=== PATIENT | female | born 1995 | race American Indian/Alaskan Native ===

== ENCOUNTER 2021-03-01 10:12 | Inpatient (IN) | payer OTHER ==
--- NOTE | 2021-03-01 11:25 | History and Physical Report ---
History of Present Illness Date of examination: 03/01/21 (Admit for BP monitoring and collection of 24hr urine) Chief complaint: elevated BP History of present illness: EDC Confirmation: 03/25/2021 Gestational Age: 36 4/7 weeks Past History : 1 Term Births: 0 Premature Births: 0 Living Children: 0 Para: 0 Mult. Births: 0 Prev : 0 Prev. attempt? 0 Aborta: 0 Elect. Ab: 0 Spont. 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 of genital herpes: no Partner hx. of genital herpes: no Rash, Viral, or Febrile illness since last LMP? no Varicella/Chicken Pox Status: Unknown TB Risk: no Genetic History Congenital Heart Defect: Mom: no Dad: no Gris Disease: Mom: no Dad: no Thalassemia Mom: no Dad: no Neural Tube Defect Mom: no Dad: no Down's Syndrome Mom: no Dad: no Vini-Sachs Mom: no Dad: no Sickle Cell Disease/Trait Mom: no Dad: no Hemophilia Mom: no Dad: no Muscular Dystrophy Mom: no Dad: no Cystic Fibrosis Mom: no Dad: no Ivis Chorea Mom: no Dad: no Mental Retardation Mom: no Dad: no Fragile X Mom: no Dad: no Other Genetic/Chromosomal Disorder Mom: no Dad: no Child w/other defect Mom: no Dad: no Enviromental Exposures Xray Exposure: no Medication, drug, or alcohol use since LMP: no Chemical/Other Exposure: no Exposure to Cat Liter: no Hx of Parvovirus (Fifth Disease): no Occupational Exposure to Children: none Active Medications (reviewed today): PNV () Current Allergies: No known allergies Past History - Obstetrical History Expected Date of Delivery: 03/25/21 Actual Gestation: 36 Week(s) 4 Day(s) : 1 Para: 0 Hx # Term Pregnancies: 0 Number of Pregnancies: 0 Spontaneous Abortions: 0 Induced : 0 Number of Living Children: 0 Medications and Allergies Allergies Allergy/AdvReac Type Severity Reaction Status Date / Time No Known Allergies Allergy Unverified 03/01/21 11:12 Review of Systems All systems: negative - Vital Signs Vital signs: Vital Signs Pulse Pulse Ox 92 H 97 03/01/21 10:57 03/01/21 10:57 Temp Pulse Resp BP Pulse Ox 86 147/94 97 03/01/21 11:22 03/01/21 11:21 03/01/21 11:22 - Physical Exam Breasts: Positive: deferred Cardiovascular: Regular rate, Normal S1, Normal S2 Lungs: Positive: Clear to auscultation Abdomen: Positive: normal appearance, soft, normal bowel sounds. Negative: distention, tenderness Genitourinary (Female): Positive: normal external genitalia Vulva: both: normal Vagina: Positive: normal moisture. Negative: discharge Cervix: Negative: lesion, discharge Uterus: Positive: normal size, normal contour Adnexa: both: normal Anus/Rectum: Positive: normal perianal skin, heme negative. Negative: rectal mass, hemorrhoids Extremities: Positive: normal Deep Tendon Reflex Grade: Normal +2 - Obstetrical FHR: category 1 Uterine Contraction Monitor Mode: External Cervical Dilatation: 1.5 (Dr Diaz in office) Cervical Effacement Percentage: 70 station: -2 Uterine Contraction Pattern: Irregular Uterine Tone Measurement Phase: Resting Uterine Contraction Intensity: Mild Results Result Diagrams: 03/01/21 11:33 03/01/21 11:33 All other labs normal. GBS negative HBsAg Screen Negative Negative *1 RPR Non Reactive Non Reactive *2 Rubella Antibodies, IgG 1.66 index Immune >0.99 *3 Non-immune <0.90 Equivocal 0.90 - 0.99 Immune >0.99 ABO Grouping B *4 Rh Factor Positive *5 Please note: Prior records for this patient's ABO / Rh type are not available for additional verification. Antibody Screen Negative Negative *6 WBC 6.5 x10E3/uL 3.4-10.8 *7 RBC 4.55 x10E6/uL 3.77-5.28 *8 Hemoglobin 12.3 g/dL 11.1-15.9 *9 Hematocrit 39.0 % 34.0-46.6 *10 MCV 86 fL 79-97 *11 MCH 27.0 pg 26.6-33.0 *12 MCHC 31.5 g/dL 31.5-35.7 *13 RDW 15.2 % 11.7-15.4 *14 Platelets 198 x10E3/uL 150-450 *15 Neutrophils 64 % Not Estab. *16 Lymphs 27 % Not Estab. *17 Monocytes 6 % Not Estab. *18 Eos 2 % Not Estab. *19 Basos 0 % Not Estab. *20 ! Immature Cells <No Reported Value> *21 Neutrophils (Absolute) 4.2 x10E3/uL 1.4-7.0 *22 Lymphs (Absolute) 1.8 x10E3/uL 0.7-3.1 *23 Monocytes(Absolute) 0.4 x10E3/uL 0.1-0.9 *24 Eos (Absolute) 0.1 x10E3/uL 0.0-0.4 *25 Baso (Absolute) 0.0 x10E3/uL 0.0-0.2 *26 ! Immature Granulocytes 1 % Not Estab. *27 ! Immature Grans (Abs) 0.0 x10E3/uL 0.0-0.1 *28 ! NRBC <No Reported Value> *29 Hematology Comments: <No Reported Value> *30 Tests: (2) HIV Ag/Ab with Reflex ([id number]) HIV Screen 4th Generation wRfx Non Reactive Non Reactive *31 Tests: (3) HCV Ab w/Rflx to Verification ([id number]) ! HCV Ab <0.1 s/co ratio 0.0-0.9 *32 Tests: (4) Comment: ([id number]) ! Comment: SPRCS *33 Non reactive HCV antibody screen is consistent with no HCV infection, unless recent infection is suspected or other evidence exists to indicate HCV infection. Tests: (5) Urine Culture, Routine ([id number]) Urine Culture, Routine Final report *34 Tests: (6) Result ([id number]) ! Result 1 No growth *35 Assessment and Plan 26yo @ 36w4d with probable GHTN. Will complete PreE evaluation and evaluation. Anticipate IOL @ 37w All orders in EMR. - Patient Problems (1) Gestational hypertension Onset Date: ~03/01/21 Current Visit: Yes Status: Acute Qualifiers: Trimester: third trimester Qualified Code(s): O13.3 - Gestational [-induced] hypertension without significant proteinuria, third trimester Plan to address problem: close monitoring of BP PreE w/u blood work and UA; admit to collect 24hr urine evaluation: BPP, EFW, AKIN. Dr Diaz's recommendation is to complete 24hr urine, plan for IOL @ 37w.
[2021-03-01 11:55] LABS: Hemoglobin 12.3 gm/dl (10.1-14.3); Mean Corpuscular HGB Conc 34 % (30-34); Mean Corpuscular Volume 89 fl (79-97); Platelet Count 133 K/mm3 (140-440); Red Blood Count 4.04 M/mm3 (3.65-5.03); Red Cell Distribution Width 13.3 % (13.2-15.2)
[2021-03-01] MEDS ORDERED: DOCUSATE SODIUM 100 MG CAP PO PRN (12:00)
[2021-03-01] MEDS ORDERED: SODIUM CHLORIDE NASAL SPRAY 44ML NS PRN (12:00)
[2021-03-01] MEDS ORDERED: ONDANSETRON 4 MG/2 ML INJ IV PRN (12:00)
[2021-03-01] MEDS ORDERED: diphenhydrAMINE 25 MG CAP PO PRN (12:00)
[2021-03-01] MEDS ORDERED: ACETAMINOPHEN 325 MG TAB PO PRN (12:00)
[2021-03-01 12:07] LABS: Alanine Aminotransferase 9 units/L (7-56); Uric Acid 4.2 mg/dL (3.5-7.6)
[2021-03-01 12:10] LABS: Bacteria,Urine 2+ /HPF (Negative); Bilirubin,Urine NEG (Negative); Blood,Urine SM (Negative); Color,Urine Yellow (Yellow); Mucus,Urine FEW /HPF; Protein,Urine <15 mg/dL mg/dL (Negative); Urobilinogen,Urine < 2.0 mg/dL (<2.0)
--- NOTE | 2021-03-01 12:30 | Ultrasound Report ---
LIMITED OBSTETRICAL ULTRASOUND WITH BIOPHYSICAL PROFILE HISTORY: Elevated blood pressure. FINDINGS: Biophysical profile is normal at 03/12. Limited obstetrical ultrasound was performed demonstrating a single viable intrauterine in the cephalic position with heart tones of 143 bpm. Amniotic fluid index is normal at 9.8 cm. Estimated age is 35 weeks 3 days by ultrasound. Estimated weight is 2608 g (5 lbs. 12 oz. ). Cephalic index is elevated at 91 (normal range 74-83). Femur length to biparietal diameter ratio is l ow at 69.1 (normal range is 72-88). IMPRESSION: 1. Normal biophysical profile at 03/12. 2. Single viable intrauterine dated 35 weeks 3 days. 3. Cephalic index is elevated. Femur length to biparietal diameter ratio is diminished. Signer Name: Miguel Gomez MD Signed: 03/01/2021 12:21 PM Workstation Name: [id number]
--- NOTE | 2021-03-01 18:09 | Event Note ---
Date: 03/01/21 Some blood pressures are in the sever range. Will start MgSo4 at this time as we are collecting the urine. Will also start labetalol 100mg first dose now for the elevated bps. I d/w plan of care and that even if the bps are normal but her blood pressures are in the severe ranges, this would mean IOL Pt expressed understanding and question were addressed and answered.
[2021-03-01] MEDS ORDERED: LACTATED RINGERS 1,000 ML ONE (18:25)
[2021-03-01] MEDS ORDERED: MAGNESIUM SULFATE 4 GM/100 ML BAG IV ONE (18:30)
[2021-03-01] MEDS ORDERED: LACTATED RINGERS 1,000 ML IV SCH (19:00)
[2021-03-01] MEDS ORDERED: hydrALAZINE 20 MG/1 ML INJ IV ONE (20:01)
--- NOTE | 2021-03-01 20:14 | Progress Note ---
Assessment and Plan A: 26 y.o. @ 36.4 wks, gHTN without proteinuria. Severe range blood pressures. Cervical exam 1.5/50/-3. P: Initiate IOL with Cervidil. Continue with magnesium infusion per protocol. Continue to monitor blood pressures and for s/sx of pre eclampsia. Subjective - Subjective Date of service: 03/01/21 (Severe range blood pressures) Principal diagnosis: IUP @ 36.4 wks Patient reports: movement normal, no new complaints, no loss of fluid, no vaginal bleeding, no contractions Objective - Vital Signs Vital Signs: Vital Signs - 12hr 03/01/21 03/01/21 03/01/21 10:57 10:58 11:02 Temperature Pulse Rate 92 H 87 86 Respiratory Rate Blood Pressure 156/89 Blood Pressure [Left] O2 Sat by Pulse 97 98 Oximetry O2 Sat by Pulse Oximetry [ Anterior Bilateral Throughout] 03/01/21 03/01/21 03/01/21 11:07 11:12 11:17 Temperature Pulse Rate 86 94 H 89 Respiratory Rate Blood Pressure 156/94 Blood Pressure [Left] O2 Sat by Pulse 99 97 96 Oximetry O2 Sat by Pulse Oximetry [ Anterior Bilateral Throughout] 03/01/21 03/01/21 03/01/21 11:21 11:22 11:27 Temperature Pulse Rate 90 86 90 Respiratory Rate Blood Pressure 147/94 Blood Pressure [Left] O2 Sat by Pulse 97 98 Oximetry O2 Sat by Pulse Oximetry [ Anterior Bilateral Throughout] 03/01/21 03/01/21 03/01/21 11:32 12:08 12:12 Temperature 98.5 F Pulse Rate 90 87 87 Respiratory 18 Rate Blood Pressure Blood Pressure 137/86 [Left] O2 Sat by Pulse 97 97 97 Oximetry O2 Sat by Pulse Oximetry [ Anterior Bilateral Throughout] 03/01/21 03/01/21 03/01/21 12:13 12:18 12:23 Temperature Pulse Rate 93 H 91 H 90 Respiratory Rate Blood Pressure 137/86 Blood Pressure [Left] O2 Sat by Pulse 96 97 97 Oximetry O2 Sat by Pulse Oximetry [ Anterior Bilateral Throughout] 03/01/21 03/01/21 03/01/21 12:24 12:26 12:28 Temperature Pulse Rate 86 91 H Respiratory Rate Blood Pressure 136/84 Blood Pressure [Left] O2 Sat by Pulse 98 Oximetry O2 Sat by Pulse 97 Oximetry [ Anterior Bilateral Throughout] 03/01/21 03/01/21 03/01/21 12:33 12:34 13:51 Temperature Pulse Rate 96 H 85 92 H Respiratory Rate Blood Pressure 142/82 Blood Pressure [Left] O2 Sat by Pulse 97 98 Oximetry O2 Sat by Pulse Oximetry [ Anterior Bilateral Throughout] 03/01/21 03/01/21 03/01/21 13:52 13:56 14:01 Temperature Pulse Rate 93 H 96 H 98 H Respiratory Rate Blood Pressure 157/88 Blood Pressure [Left] O2 Sat by Pulse 97 98 Oximetry O2 Sat by Pulse Oximetry [ Anterior Bilateral Throughout] 03/01/21 03/01/21 03/01/21 14:06 14:11 14:16 Temperature Pulse Rate 99 H 101 H 94 H Respiratory Rate Blood Pressure Blood Pressure [Left] O2 Sat by Pulse 97 97 97 Oximetry O2 Sat by Pulse Oximetry [ Anterior Bilateral Throughout] 03/01/21 03/01/21 03/01/21 14:21 14:26 14:31 Temperature Pulse Rate 96 H 89 96 H Respiratory Rate Blood Pressure Blood Pressure [Left] O2 Sat by Pulse 97 98 97 Oximetry O2 Sat by Pulse Oximetry [ Anterior Bilateral Throughout] 03/01/21 03/01/21 03/01/21 14:36 14:41 14:46 Temperature Pulse Rate 92 H 92 H 94 H Respiratory Rate Blood Pressure Blood Pressure [Left] O2 Sat by Pulse 96 97 97 Oximetry O2 Sat by Pulse Oximetry [ Anterior Bilateral Throughout] 03/01/21 03/01/21 03/01/21 14:51 14:56 15:01 Temperature Pulse Rate 103 H 95 H 98 H Respiratory Rate Blood Pressure Blood Pressure [Left] O2 Sat by Pulse 96 97 98 Oximetry O2 Sat by Pulse Oximetry [ Anterior Bilateral Throughout] 03/01/21 03/01/21 03/01/21 15:06 15:11 15:16 Temperature Pulse Rate 93 H 84 94 H Respiratory Rate Blood Pressure Blood Pressure [Left] O2 Sat by Pulse 97 97 96 Oximetry O2 Sat by Pulse Oximetry [ Anterior Bilateral Throughout] 03/01/21 03/01/21 03/01/21 15:19 15:21 15:26 Temperature Pulse Rate 88 93 H 97 H Respiratory Rate Blood Pressure 156/89 Blood Pressure [Left] O2 Sat by Pulse 98 96 Oximetry O2 Sat by Pulse Oximetry [ Anterior Bilateral Throughout] 03/01/21 03/01/21 03/01/21 15:31 15:36 15:41 Temperature Pulse Rate 94 H 90 95 H Respiratory Rate Blood Pressure Blood Pressure [Left] O2 Sat by Pulse 97 98 97 Oximetry O2 Sat by Pulse Oximetry [ Anterior Bilateral Throughout] 03/01/21 03/01/21 03/01/21 15:46 15:51 15:53 Temperature Pulse Rate 88 94 H 103 H Respiratory Rate Blood Pressure Blood Pressure [Left] O2 Sat by Pulse 98 97 94 Oximetry O2 Sat by Pulse Oximetry [ Anterior Bilateral Throughout] 03/01/21 03/01/21 03/01/21 15:56 16:01 16:06 Temperature Pulse Rate 100 H 103 H 99 H Respiratory Rate Blood Pressure Blood Pressure [Left] O2 Sat by Pulse 96 99 98 Oximetry O2 Sat by Pulse Oximetry [ Anterior Bilateral Throughout] 03/01/21 03/01/21 03/01/21 16:11 16:16 16:21 Temperature Pulse Rate 98 H 103 H 94 H Respiratory Rate Blood Pressure Blood Pressure [Left] O2 Sat by Pulse 98 96 97 Oximetry O2 Sat by Pulse Oximetry [ Anterior Bilateral Throughout] 03/01/21 03/01/21 03/01/21 16:25 16:26 16:31 Temperature Pulse Rate 98 H 102 H 83 Respiratory Rate Blood Pressure Blood Pressure [Left] O2 Sat by Pulse 93 94 97 Oximetry O2 Sat by Pulse Oximetry [ Anterior Bilateral Throughout] 03/01/21 03/01/21 03/01/21 16:33 16:36 16:41 Temperature Pulse Rate 96 H 93 H 94 H Respiratory Rate Blood Pressure Blood Pressure [Left] O2 Sat by Pulse 87 98 97 Oximetry O2 Sat by Pulse Oximetry [ Anterior Bilateral Throughout] 03/01/21 03/01/21 03/01/21 16:46 16:51 16:56 Temperature Pulse Rate 96 H 89 96 H Respiratory Rate Blood Pressure Blood Pressure [Left] O2 Sat by Pulse 97 97 98 Oximetry O2 Sat by Pulse Oximetry [ Anterior Bilateral Throughout] 03/01/21 03/01/21 03/01/21 17:09 17:14 17:16 Temperature Pulse Rate 91 H 98 H 92 H Respiratory Rate Blood Pressure 170/96 Blood Pressure [Left] O2 Sat by Pulse 98 97 Oximetry O2 Sat by Pulse Oximetry [ Anterior Bilateral Throughout] 03/01/21 03/01/21 03/01/21 17:17 17:19 17:24 Temperature Pulse Rate 91 H 95 H 95 H Respiratory Rate Blood Pressure 160/89 Blood Pressure [Left] O2 Sat by Pulse 97 98 Oximetry O2 Sat by Pulse Oximetry [ Anterior Bilateral Throughout] 03/01/21 03/01/21 03/01/21 17:29 17:32 17:34 Temperature Pulse Rate 99 H 92 H 98 H Respiratory Rate Blood Pressure 158/88 Blood Pressure [Left] O2 Sat by Pulse 98 99 Oximetry O2 Sat by Pulse Oximetry [ Anterior Bilateral Throughout] 03/01/21 03/01/21 03/01/21 17:39 17:44 17:47 Temperature Pulse Rate 96 H 98 H 101 H Respiratory Rate Blood Pressure 154/89 Blood Pressure [Left] O2 Sat by Pulse 98 98 Oximetry O2 Sat by Pulse Oximetry [ Anterior Bilateral Throughout] 03/01/21 03/01/21 03/01/21 17:49 17:54 17:59 Temperature Pulse Rate 101 H 96 H 95 H Respiratory Rate Blood Pressure Blood Pressure [Left] O2 Sat by Pulse 98 99 97 Oximetry O2 Sat by Pulse Oximetry [ Anterior Bilateral Throughout] 03/01/21 03/01/21 03/01/21 18:02 18:04 18:05 Temperature Pulse Rate 93 H 96 H 98 H Respiratory Rate Blood Pressure 159/90 155/85 Blood Pressure [Left] O2 Sat by Pulse 96 Oximetry O2 Sat by Pulse Oximetry [ Anterior Bilateral Throughout] 03/01/21 03/01/21 03/01/21 18:09 18:14 18:17 Temperature Pulse Rate 98 H 95 H 96 H Respiratory Rate Blood Pressure 154/84 Blood Pressure [Left] O2 Sat by Pulse 98 98 Oximetry O2 Sat by Pulse Oximetry [ Anterior Bilateral Throughout] 03/01/21 03/01/21 03/01/21 18:19 18:24 18:26 Temperature Pulse Rate 102 H 97 H 105 H Respiratory Rate Blood Pressure Blood Pressure [Left] O2 Sat by Pulse 98 98 94 Oximetry O2 Sat by Pulse Oximetry [ Anterior Bilateral Throughout] 03/01/21 03/01/21 03/01/21 18:29 18:32 18:33 Temperature Pulse Rate 96 H 90 97 H Respiratory Rate Blood Pressure 162/87 Blood Pressure [Left] O2 Sat by Pulse 97 92 Oximetry O2 Sat by Pulse Oximetry [ Anterior Bilateral Throughout] 03/01/21 03/01/21 03/01/21 18:34 18:39 18:44 Temperature Pulse Rate 98 H 100 H 99 H Respiratory Rate Blood Pressure Blood Pressure [Left] O2 Sat by Pulse 97 97 97 Oximetry O2 Sat by Pulse Oximetry [ Anterior Bilateral Throughout] 03/01/21 03/01/21 03/01/21 18:47 18:49 18:54 Temperature Pulse Rate 92 H 98 H 98 H Respiratory Rate Blood Pressure 161/84 Blood Pressure [Left] O2 Sat by Pulse 97 96 Oximetry O2 Sat by Pulse Oximetry [ Anterior Bilateral Throughout] 03/01/21 03/01/21 03/01/21 18:59 19:02 19:04 Temperature Pulse Rate 89 95 H 94 H Respiratory Rate Blood Pressure 163/86 Blood Pressure [Left] O2 Sat by Pulse 97 96 Oximetry O2 Sat by Pulse Oximetry [ Anterior Bilateral Throughout] 03/01/21 03/01/21 03/01/21 19:09 19:14 19:17 Temperature Pulse Rate 91 H 96 H 93 H Respiratory Rate Blood Pressure 170/86 Blood Pressure [Left] O2 Sat by Pulse 98 97 Oximetry O2 Sat by Pulse Oximetry [ Anterior Bilateral Throughout] 03/01/21 03/01/21 03/01/21 19:19 19:20 19:24 Temperature Pulse Rate 95 H 106 H 88 Respiratory Rate Blood Pressure Blood Pressure [Left] O2 Sat by Pulse 97 89 97 Oximetry O2 Sat by Pulse Oximetry [ Anterior Bilateral Throughout] 03/01/21 03/01/21 03/01/21 19:29 19:32 19:34 Temperature Pulse Rate 88 101 H 100 H Respiratory Rate Blood Pressure 171/92 Blood Pressure [Left] O2 Sat by Pulse 98 98 Oximetry O2 Sat by Pulse Oximetry [ Anterior Bilateral Throughout] 03/01/21 03/01/21 03/01/21 19:39 19:44 19:47 Temperature Pulse Rate 98 H 96 H 85 Respiratory Rate Blood Pressure 171/101 Blood Pressure [Left] O2 Sat by Pulse 97 97 Oximetry O2 Sat by Pulse Oximetry [ Anterior Bilateral Throughout] 03/01/21 03/01/21 03/01/21 19:49 19:54 19:59 Temperature Pulse Rate 90 93 H 96 H Respiratory Rate Blood Pressure Blood Pressure [Left] O2 Sat by Pulse 97 96 97 Oximetry O2 Sat by Pulse Oximetry [ Anterior Bilateral Throughout] 03/01/21 03/01/21 03/01/21 20:00 20:04 20:09 Temperature Pulse Rate 90 98 H 87 Respiratory Rate Blood Pressure 163/89 Blood Pressure [Left] O2 Sat by Pulse 97 98 Oximetry O2 Sat by Pulse Oximetry [ Anterior Bilateral Throughout] - Exam Narrative Exam: Pt was a direct admit from the office. Pt denies DUONG, blurred vision, spots before her eyes, chest pain, shortness of breath, and upper abdominal pain. We discussed should any of these symptoms occur to let the RN know immediately. She has had some severe blood pressures since admission. Ranges have been 130's-170's/80-100's. Consult[address] Dr. Diaz. The plan is to go ahead and initiate the IOL. Cervical exam 1.5/50/-3. Cervidil ordered. Magnesium infusion has already been ordered and is infusing. Breasts: deferred Cardiovascular: Regular rate Lungs: Normal air movement Abdomen: Present: normal appearance, soft Vulva: both: normal Uterus: Present: normal FHR: category 1 Uterine Contraction Monitor Mode: External Cervical Dilatation: 1.5 Cervical Effacement Percentage: 50 station: -3 Uterine Contraction Pattern: Absent Extremities: normal - Labs Labs: Abnormal Labs 03/01/21 03/01/21 11:33 11:33 Plt Count 133 L Creatinine 0.5 L Laboratory Results - last 24 hr 03/01/21 03/01/21 03/01/21 11:30 11:33 11:33 WBC 7.2 RBC 4.04 Hgb 12.3 Hct 36.0 MCV 89 MCH 31 MCHC 34 RDW 13.3 Plt Count 133 L Creatinine 0.5 L Estimated GFR > 60 Uric Acid 4.2 AST 16 ALT 9 Lactate Dehydrogenase 179 Urine Color Yellow Urine Turbidity Slightly-cloudy Urine pH 7.0 Ur Specific [place] 1.013 Urine Protein <15 mg/dl Urine Glucose (UA) Neg Urine Ketones Neg Urine Blood Sm Urine Nitrite Neg Urine Bilirubin Neg Urine Urobilinogen < 2.0 Ur Leukocyte Esterase Tr Urine WBC (Auto) 3.0 Urine RBC (Auto) 1.0 U Epithel Cells (Auto) 3.0 Urine Bacteria (Auto) 2+ Urine Mucus Few Blood Type Antibody Screen 03/01/21 11:33 WBC RBC Hgb Hct MCV MCH MCHC RDW Plt Count Creatinine Estimated GFR Uric Acid AST ALT Lactate Dehydrogenase Urine Color Urine Turbidity Urine pH Ur Specific [place] Urine Protein Urine Glucose (UA) Urine Ketones Urine Blood Urine Nitrite Urine Bilirubin Urine Urobilinogen Ur Leukocyte Esterase Urine WBC (Auto) Urine RBC (Auto) U Epithel Cells (Auto) Urine Bacteria (Auto) Urine Mucus Blood Type B POSITIVE Antibody Screen Negative
[2021-03-01] MEDS ORDERED: DINOPROSTONE 10 MG VAG SUPP VG ONE (20:30)
--- NOTE | 2021-03-02 06:42 | Progress Note ---
Assessment and Plan - Patient Problems (1) Pre-eclampsia in third trimester Onset Date: ~03/02/21 Current Visit: Yes Status: Acute Plan to address problem: BPs in severe range Decision to move forward with IOL Cervidil in place due out @ 0830 this AM. FHR Cat 1. Ctx irreg intensity Q 3-6 min. MGSO4 @ 2gm/hr BP 150- 140/90 Labetalol 100mg BID Continue close observation of BP Subjective - Subjective Date of service: 03/02/21 (pt resting States she does feel ctx) Principal diagnosis: IUP @ 36.5 wks PreE MGSO4; Cervidil Interval history: EDC Confirmation: 03/25/2021 Gestational Age: 36 4/7 weeks Past History : 1 Term Births: 0 Premature Births: 0 Living Children: 0 Para: 0 Mult. Births: 0 Prev : 0 Prev. attempt? 0 Aborta: 0 Elect. Ab: 0 Spont. 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 of genital herpes: no Partner hx. of genital herpes: no Rash, Viral, or Febrile illness since last LMP? no Varicella/Chicken Pox Status: Unknown TB Risk: no Genetic History Congenital Heart Defect: Mom: no Dad: no Gris Disease: Mom: no Dad: no Thalassemia Mom: no Dad: no Neural Tube Defect Mom: no Dad: no Down's Syndrome Mom: no Dad: no Vini-Sachs Mom: no Dad: no Sickle Cell Disease/Trait Mom: no Dad: no Hemophilia Mom: no Dad: no Muscular Dystrophy Mom: no Dad: no Cystic Fibrosis Mom: no Dad: no Lovejoy Chorea Mom: no Dad: no Mental Retardation Mom: no Dad: no Fragile X Mom: no Dad: no Other Genetic/Chromosomal Disorder Mom: no Dad: no Child w/other defect Mom: no Dad: no Enviromental Exposures Xray Exposure: no Medication, drug, or alcohol use since LMP: no Chemical/Other Exposure: no Exposure to Cat Liter: no Hx of Parvovirus (Fifth Disease): no Occupational Exposure to Children: none Active Medications (reviewed today): PNV () Current Allergies: No known allergies Patient reports: movement normal, no new complaints, no loss of fluid, no vaginal bleeding, no contractions Objective - Vital Signs Vital Signs: Vital Signs - 12hr 03/01/21 03/01/21 03/01/21 18:44 18:47 18:49 Pulse Rate 99 H 92 H 98 H Blood Pressure 161/84 O2 Sat by Pulse 97 97 Oximetry 03/01/21 03/01/21 03/01/21 18:54 18:59 19:02 Pulse Rate 98 H 89 95 H Blood Pressure 163/86 O2 Sat by Pulse 96 97 Oximetry 03/01/21 03/01/21 03/01/21 19:04 19:09 19:14 Pulse Rate 94 H 91 H 96 H Blood Pressure O2 Sat by Pulse 96 98 97 Oximetry 03/01/21 03/01/21 03/01/21 19:17 19:19 19:20 Pulse Rate 93 H 95 H 106 H Blood Pressure 170/86 O2 Sat by Pulse 97 89 Oximetry 03/01/21 03/01/21 03/01/21 19:24 19:29 19:32 Pulse Rate 88 88 101 H Blood Pressure 171/92 O2 Sat by Pulse 97 98 Oximetry 03/01/21 03/01/21 03/01/21 19:34 19:39 19:44 Pulse Rate 100 H 98 H 96 H Blood Pressure O2 Sat by Pulse 98 97 97 Oximetry 03/01/21 03/01/21 03/01/21 19:47 19:49 19:54 Pulse Rate 85 90 93 H Blood Pressure 171/101 O2 Sat by Pulse 97 96 Oximetry 03/01/21 03/01/21 03/01/21 19:59 20:00 20:04 Pulse Rate 96 H 90 98 H Blood Pressure 163/89 O2 Sat by Pulse 97 97 Oximetry 03/01/21 03/01/21 03/01/21 20:09 20:14 20:17 Pulse Rate 87 90 88 Blood Pressure 154/83 O2 Sat by Pulse 98 97 Oximetry 03/01/21 03/01/21 03/01/21 20:19 20:24 20:29 Pulse Rate 89 91 H 89 Blood Pressure O2 Sat by Pulse 98 98 98 Oximetry 03/01/21 03/01/21 03/01/21 20:32 20:34 20:39 Pulse Rate 87 87 88 Blood Pressure 156/88 O2 Sat by Pulse 99 98 Oximetry 03/01/21 03/01/21 03/01/21 20:44 20:47 20:49 Pulse Rate 88 84 94 H Blood Pressure 155/95 O2 Sat by Pulse 99 98 Oximetry 03/01/21 03/01/21 03/01/21 20:54 20:59 21:02 Pulse Rate 85 88 83 Blood Pressure 158/88 O2 Sat by Pulse 99 97 Oximetry 03/01/21 03/01/21 03/01/21 21:04 21:09 21:14 Pulse Rate 87 87 86 Blood Pressure O2 Sat by Pulse 98 98 97 Oximetry 03/01/21 03/01/21 03/01/21 21:17 21:19 21:24 Pulse Rate 86 88 86 Blood Pressure 150/91 O2 Sat by Pulse 98 97 Oximetry 03/01/21 03/01/21 03/01/21 21:29 21:32 21:34 Pulse Rate 89 88 90 Blood Pressure 157/87 O2 Sat by Pulse 98 97 Oximetry 03/01/21 03/01/21 03/01/21 21:39 21:44 21:47 Pulse Rate 94 H 90 92 H Blood Pressure 151/88 O2 Sat by Pulse 98 98 Oximetry 03/01/21 03/01/21 03/01/21 21:49 21:54 21:59 Pulse Rate 97 H 91 H 91 H Blood Pressure O2 Sat by Pulse 97 97 98 Oximetry 03/01/21 03/01/21 03/01/21 22:02 22:04 22:09 Pulse Rate 88 93 H 90 Blood Pressure 152/87 O2 Sat by Pulse 99 98 Oximetry 03/01/21 03/01/21 03/01/21 22:14 22:17 22:19 Pulse Rate 89 86 89 Blood Pressure 152/87 O2 Sat by Pulse 98 97 Oximetry 03/01/21 03/01/21 03/01/21 22:24 22:27 22:29 Pulse Rate 90 64 Blood Pressure 152/87 O2 Sat by Pulse 98 92 Oximetry 03/01/21 03/01/21 03/01/21 22:30 22:32 22:35 Pulse Rate 90 90 98 H Blood Pressure 158/93 O2 Sat by Pulse 97 96 Oximetry 03/01/21 03/01/21 03/01/21 22:40 22:45 22:47 Pulse Rate 91 H 95 H 87 Blood Pressure 145/76 O2 Sat by Pulse 99 98 Oximetry 03/01/21 03/01/21 03/01/21 22:50 22:55 23:00 Pulse Rate 92 H 89 96 H Blood Pressure O2 Sat by Pulse 97 97 97 Oximetry 03/01/21 03/01/21 03/01/21 23:02 23:05 23:10 Pulse Rate 87 92 H 93 H Blood Pressure 139/72 O2 Sat by Pulse 97 96 Oximetry 03/01/21 03/01/21 03/01/21 23:15 23:17 23:20 Pulse Rate 89 88 93 H Blood Pressure 140/70 O2 Sat by Pulse 97 98 Oximetry 03/01/21 03/01/21 03/01/21 23:25 23:30 23:32 Pulse Rate 94 H 90 91 H Blood Pressure 134/72 O2 Sat by Pulse 96 97 Oximetry 03/01/21 03/01/21 03/01/21 23:35 23:40 23:45 Pulse Rate 91 H 89 89 Blood Pressure O2 Sat by Pulse 96 97 97 Oximetry 03/01/21 03/01/21 03/01/21 23:47 23:50 23:55 Pulse Rate 89 89 89 Blood Pressure 133/69 O2 Sat by Pulse 97 99 Oximetry 03/02/21 03/02/21 03/02/21 00:00 00:02 00:05 Pulse Rate 85 81 86 Blood Pressure 136/81 O2 Sat by Pulse 97 99 Oximetry 03/02/21 03/02/21 03/02/21 00:10 00:15 00:17 Pulse Rate 89 87 84 Blood Pressure 127/76 O2 Sat by Pulse 97 98 Oximetry 03/02/21 03/02/21 03/02/21 00:20 00:25 00:30 Pulse Rate 86 85 89 Blood Pressure O2 Sat by Pulse 97 98 97 Oximetry 03/02/21 03/02/21 03/02/21 00:32 00:35 00:40 Pulse Rate 85 87 87 Blood Pressure 127/72 O2 Sat by Pulse 97 97 Oximetry 03/02/21 03/02/21 03/02/21 00:45 00:47 00:50 Pulse Rate 90 86 86 Blood Pressure 132/77 O2 Sat by Pulse 97 96 Oximetry 03/02/21 03/02/21 03/02/21 00:55 01:00 01:02 Pulse Rate 89 85 87 Blood Pressure 131/77 O2 Sat by Pulse 96 96 Oximetry 03/02/21 03/02/21 03/02/21 01:05 01:10 01:15 Pulse Rate 83 86 82 Blood Pressure O2 Sat by Pulse 96 96 95 Oximetry 03/02/21 03/02/21 03/02/21 01:18 01:20 01:25 Pulse Rate 86 88 88 Blood Pressure 129/75 O2 Sat by Pulse 95 95 Oximetry 03/02/21 03/02/21 03/02/21 01:26 01:30 01:32 Pulse Rate 84 84 86 Blood Pressure 140/81 O2 Sat by Pulse 94 96 Oximetry 03/02/21 03/02/21 03/02/21 01:35 01:40 01:45 Pulse Rate 85 84 84 Blood Pressure O2 Sat by Pulse 95 95 95 Oximetry 03/02/21 03/02/21 03/02/21 01:47 01:50 01:55 Pulse Rate 83 95 H 85 Blood Pressure 143/85 O2 Sat by Pulse 97 94 Oximetry 03/02/21 03/02/21 03/02/21 02:00 02:02 02:05 Pulse Rate 86 91 H 87 Blood Pressure 144/88 O2 Sat by Pulse 95 96 Oximetry 03/02/21 03/02/21 03/02/21 02:10 02:15 02:18 Pulse Rate 86 94 H 89 Blood Pressure 140/89 O2 Sat by Pulse 95 94 Oximetry 03/02/21 03/02/21 03/02/21 02:20 02:25 02:30 Pulse Rate 87 91 H 82 Blood Pressure O2 Sat by Pulse 97 97 96 Oximetry 03/02/21 03/02/21 03/02/21 02:33 02:35 02:40 Pulse Rate 82 88 85 Blood Pressure 128/73 O2 Sat by Pulse 96 96 Oximetry 03/02/21 03/02/21 03/02/21 02:45 02:48 02:50 Pulse Rate 82 86 84 Blood Pressure 131/80 O2 Sat by Pulse 96 96 Oximetry 03/02/21 03/02/21 03/02/21 02:55 03:00 03:02 Pulse Rate 82 81 83 Blood Pressure 129/72 O2 Sat by Pulse 97 97 Oximetry 03/02/21 03/02/21 03/02/21 03:05 03:10 03:15 Pulse Rate 92 H 84 82 Blood Pressure O2 Sat by Pulse 97 97 96 Oximetry 03/02/21 03/02/21 03/02/21 03:17 03:20 03:25 Pulse Rate 84 93 H 85 Blood Pressure 130/73 O2 Sat by Pulse 97 97 Oximetry 03/02/21 03/02/21 03/02/21 03:30 03:32 03:35 Pulse Rate 88 83 85 Blood Pressure 133/78 O2 Sat by Pulse 97 96 Oximetry 03/02/21 03/02/21 03/02/21 03:40 03:45 03:47 Pulse Rate 84 86 86 Blood Pressure 134/79 O2 Sat by Pulse 96 96 Oximetry 03/02/21 03/02/21 03/02/21 03:50 03:53 03:55 Pulse Rate 91 H 99 H 92 H Blood Pressure O2 Sat by Pulse 97 94 97 Oximetry 03/02/21 03/02/21 03/02/21 04:00 04:02 04:05 Pulse Rate 90 88 84 Blood Pressure 143/90 O2 Sat by Pulse 99 98 Oximetry 03/02/21 03/02/21 03/02/21 04:10 04:15 04:17 Pulse Rate 88 88 86 Blood Pressure 143/89 O2 Sat by Pulse 97 97 Oximetry 03/02/21 03/02/21 03/02/21 04:20 04:25 04:30 Pulse Rate 88 89 87 Blood Pressure O2 Sat by Pulse 98 97 98 Oximetry 03/02/21 03/02/21 03/02/21 04:32 04:35 04:40 Pulse Rate 89 90 92 H Blood Pressure 143/86 O2 Sat by Pulse 96 97 Oximetry 03/02/21 03/02/21 03/02/21 04:45 04:47 04:50 Pulse Rate 88 91 H 88 Blood Pressure 143/88 O2 Sat by Pulse 97 99 Oximetry 03/02/21 03/02/21 03/02/21 04:55 05:00 05:02 Pulse Rate 91 H 94 H 83 Blood Pressure 136/82 O2 Sat by Pulse 97 97 Oximetry 03/02/21 03/02/21 03/02/21 05:05 05:10 05:15 Pulse Rate 87 87 86 Blood Pressure O2 Sat by Pulse 96 97 97 Oximetry 03/02/21 03/02/21 03/02/21 05:17 05:20 05:25 Pulse Rate 94 H 84 86 Blood Pressure 139/83 O2 Sat by Pulse 96 96 Oximetry 03/02/21 03/02/21 03/02/21 05:30 05:32 05:35 Pulse Rate 83 83 89 Blood Pressure 131/77 O2 Sat by Pulse 96 96 Oximetry 03/02/21 03/02/21 03/02/21 05:40 05:45 05:47 Pulse Rate 83 93 H 86 Blood Pressure 149/90 O2 Sat by Pulse 96 97 Oximetry 03/02/21 03/02/21 03/02/21 05:50 05:55 05:58 Pulse Rate 84 87 89 Blood Pressure O2 Sat by Pulse 96 97 94 Oximetry 03/02/21 03/02/21 03/02/21 06:00 06:02 06:05 Pulse Rate 89 91 H 89 Blood Pressure 152/90 O2 Sat by Pulse 96 96 Oximetry 03/02/21 03/02/21 03/02/21 06:07 06:10 06:13 Pulse Rate 98 H 87 86 Blood Pressure O2 Sat by Pulse 94 94 94 Oximetry 03/02/21 03/02/21 03/02/21 06:15 06:18 06:20 Pulse Rate 88 87 89 Blood Pressure 147/95 O2 Sat by Pulse 95 96 Oximetry 03/02/21 03/02/21 03/02/21 06:25 06:30 06:34 Pulse Rate 95 H 95 H 92 H Blood Pressure 158/96 O2 Sat by Pulse 97 97 Oximetry 03/02/21 03/02/21 06:35 06:40 Pulse Rate 91 H 92 H Blood Pressure O2 Sat by Pulse 97 97 Oximetry - Exam Breasts: deferred Cardiovascular: Regular rate Lungs: Clear to auscultation Abdomen: Present: normal appearance, soft. Absent: distention, tenderness Uterus: Present: normal FHR: auscultation normal, category 1 Uterine Contraction Monitor Mode: External Uterine Contraction Pattern: Irregular Uterine Tone Measurement Phase: Resting Uterine Contraction Intensity: Moderate Extremities: normal Deep Tendon Reflex Grade: Normal +2 - Labs Labs: Abnormal Labs 03/01/21 03/01/21 03/02/21 11:33 11:33 00:44 Plt Count 133 L Creatinine 0.5 L Magnesium 4.30 H Laboratory Results - last 24 hr 03/01/21 03/01/21 03/01/21 11:30 11:33 11:33 WBC 7.2 RBC 4.04 Hgb 12.3 Hct 36.0 MCV 89 MCH 31 MCHC 34 RDW 13.3 Plt Count 133 L Creatinine 0.5 L Estimated GFR > 60 Uric Acid 4.2 Magnesium AST 16 ALT 9 Lactate Dehydrogenase 179 Urine Color Yellow Urine Turbidity Slightly-cloudy Urine pH 7.0 Ur Specific [place] 1.013 Urine Protein <15 mg/dl Urine Glucose (UA) Neg Urine Ketones Neg Urine Blood Sm Urine Nitrite Neg Urine Bilirubin Neg Urine Urobilinogen < 2.0 Ur Leukocyte Esterase Tr Urine WBC (Auto) 3.0 Urine RBC (Auto) 1.0 U Epithel Cells (Auto) 3.0 Urine Bacteria (Auto) 2+ Urine Mucus Few Blood Type Antibody Screen 03/01/21 03/02/21 11:33 00:44 WBC RBC Hgb Hct MCV MCH MCHC RDW Plt Count Creatinine Estimated GFR Uric Acid Magnesium 4.30 H AST ALT Lactate Dehydrogenase Urine Color Urine Turbidity Urine pH Ur Specific [place] Urine Protein Urine Glucose (UA) Urine Ketones Urine Blood Urine Nitrite Urine Bilirubin Urine Urobilinogen Ur Leukocyte Esterase Urine WBC (Auto) Urine RBC (Auto) U Epithel Cells (Auto) Urine Bacteria (Auto) Urine Mucus Blood Type B POSITIVE Antibody Screen Negative
[2021-03-02] MEDS: PRENATAL VIT27-FE FUMARATE-FOLIC ACID VIT TAB PO SCH (09:50)
[2021-03-02] MEDS ORDERED: OXYTOCIN DRIP 30,000 MILLIUNITS/500 ML BAG IV ONE (10:17)
[2021-03-02] MEDS: OXYTOCIN DRIP 30 UNITS/500 ML BAG IV SCH ×4 (11:53→15:34)
[2021-03-02] MEDS: MAGNESIUM SULFATE 40GM/1000ML 40 GM/1,000 ML BAG IV SCH (15:35)
--- NOTE | 2021-03-02 17:12 | Progress Note ---
Assessment and Plan - Patient Problems (1) Pre-eclampsia in third trimester Onset Date: ~03/02/21 Current Visit: Yes Status: Acute Plan to address problem: Pt resting States ctx have not worsened. Pit off 20mu. Will allow PM care and dinner Will place Cervidil @ 1900 All questions addressed. Discussed serial IOL Will continue unless there is chg in mom or baby's condition that warrants operative intervention. Dr Shelley aware. Subjective - Subjective Date of service: 03/02/21 (pitocin off; no cervical chg) Principal diagnosis: IUP @ 36.5 wks PreE MGSO4; Cervidil Interval history: EDC Confirmation: 03/25/2021 Gestational Age: 36 4/7 weeks Past History : 1 Term Births: 0 Premature Births: 0 Living Children: 0 Para: 0 Mult. Births: 0 Prev : 0 Prev. attempt? 0 Aborta: 0 Elect. Ab: 0 Spont. 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 of genital herpes: no Partner hx. of genital herpes: no Rash, Viral, or Febrile illness since last LMP? no Varicella/Chicken Pox Status: Unknown TB Risk: no Genetic History Congenital Heart Defect: Mom: no Dad: no Gris Disease: Mom: no Dad: no Thalassemia Mom: no Dad: no Neural Tube Defect Mom: no Dad: no Down's Syndrome Mom: no Dad: no Vini-Sachs Mom: no Dad: no Sickle Cell Disease/Trait Mom: no Dad: no Hemophilia Mom: no Dad: no Muscular Dystrophy Mom: no Dad: no Cystic Fibrosis Mom: no Dad: no Shannon Chorea Mom: no Dad: no Mental Retardation Mom: no Dad: no Fragile X Mom: no Dad: no Other Genetic/Chromosomal Disorder Mom: no Dad: no Child w/other defect Mom: no Dad: no Enviromental Exposures Xray Exposure: no Medication, drug, or alcohol use since LMP: no Chemical/Other Exposure: no Exposure to Cat Liter: no Hx of Parvovirus (Fifth Disease): no Occupational Exposure to Children: none Active Medications (reviewed today): PNV () Current Allergies: No known allergies Patient reports: movement normal, no new complaints, no loss of fluid, no vaginal bleeding, no contractions Objective - Vital Signs Vital Signs: Vital Signs - 12hr 03/02/21 03/02/21 03/02/21 05:10 05:15 05:17 Temperature Pulse Rate 87 86 94 H Respiratory Rate Blood Pressure 139/83 Blood Pressure [Left] O2 Sat by Pulse 97 97 Oximetry O2 Sat by Pulse Oximetry [ Anterior Bilateral Throughout] 03/02/21 03/02/21 03/02/21 05:20 05:25 05:30 Temperature Pulse Rate 84 86 83 Respiratory Rate Blood Pressure Blood Pressure [Left] O2 Sat by Pulse 96 96 96 Oximetry O2 Sat by Pulse Oximetry [ Anterior Bilateral Throughout] 03/02/21 03/02/21 03/02/21 05:32 05:35 05:40 Temperature Pulse Rate 83 89 83 Respiratory Rate Blood Pressure 131/77 Blood Pressure [Left] O2 Sat by Pulse 96 96 Oximetry O2 Sat by Pulse Oximetry [ Anterior Bilateral Throughout] 03/02/21 03/02/21 03/02/21 05:45 05:47 05:50 Temperature Pulse Rate 93 H 86 84 Respiratory Rate Blood Pressure 149/90 Blood Pressure [Left] O2 Sat by Pulse 97 96 Oximetry O2 Sat by Pulse Oximetry [ Anterior Bilateral Throughout] 03/02/21 03/02/21 03/02/21 05:55 05:58 06:00 Temperature Pulse Rate 87 89 89 Respiratory Rate Blood Pressure Blood Pressure [Left] O2 Sat by Pulse 97 94 96 Oximetry O2 Sat by Pulse Oximetry [ Anterior Bilateral Throughout] 03/02/21 03/02/21 03/02/21 06:02 06:05 06:07 Temperature Pulse Rate 91 H 89 98 H Respiratory Rate Blood Pressure 152/90 Blood Pressure [Left] O2 Sat by Pulse 96 94 Oximetry O2 Sat by Pulse Oximetry [ Anterior Bilateral Throughout] 03/02/21 03/02/21 03/02/21 06:10 06:13 06:15 Temperature Pulse Rate 87 86 88 Respiratory Rate Blood Pressure Blood Pressure [Left] O2 Sat by Pulse 94 94 95 Oximetry O2 Sat by Pulse Oximetry [ Anterior Bilateral Throughout] 03/02/21 03/02/21 03/02/21 06:18 06:20 06:25 Temperature Pulse Rate 87 89 95 H Respiratory Rate Blood Pressure 147/95 Blood Pressure [Left] O2 Sat by Pulse 96 97 Oximetry O2 Sat by Pulse Oximetry [ Anterior Bilateral Throughout] 03/02/21 03/02/21 03/02/21 06:30 06:34 06:35 Temperature Pulse Rate 95 H 92 H 91 H Respiratory Rate Blood Pressure 158/96 Blood Pressure [Left] O2 Sat by Pulse 97 97 Oximetry O2 Sat by Pulse Oximetry [ Anterior Bilateral Throughout] 03/02/21 03/02/21 03/02/21 06:40 06:45 06:47 Temperature Pulse Rate 92 H 91 H 95 H Respiratory Rate Blood Pressure 157/90 Blood Pressure [Left] O2 Sat by Pulse 97 97 Oximetry O2 Sat by Pulse Oximetry [ Anterior Bilateral Throughout] 03/02/21 03/02/21 03/02/21 06:50 06:55 07:00 Temperature Pulse Rate 95 H 91 H 96 H Respiratory Rate Blood Pressure Blood Pressure [Left] O2 Sat by Pulse 96 96 96 Oximetry O2 Sat by Pulse Oximetry [ Anterior Bilateral Throughout] 03/02/21 03/02/21 03/02/21 07:58 08:01 08:03 Temperature 98.8 F Pulse Rate 91 H 89 92 H Respiratory 16 Rate Blood Pressure Blood Pressure 142/92 [Left] O2 Sat by Pulse 97 93 Oximetry O2 Sat by Pulse 97 Oximetry [ Anterior Bilateral Throughout] 03/02/21 03/02/21 03/02/21 08:04 08:06 08:10 Temperature Pulse Rate 90 90 94 H Respiratory Rate Blood Pressure 142/92 Blood Pressure [Left] O2 Sat by Pulse 95 94 Oximetry O2 Sat by Pulse Oximetry [ Anterior Bilateral Throughout] 03/02/21 03/02/21 03/02/21 08:11 08:16 08:21 Temperature Pulse Rate 95 H 99 H 90 Respiratory Rate Blood Pressure Blood Pressure [Left] O2 Sat by Pulse 95 95 97 Oximetry O2 Sat by Pulse Oximetry [ Anterior Bilateral Throughout] 03/02/21 03/02/21 03/02/21 08:26 08:31 08:32 Temperature Pulse Rate 90 90 93 H Respiratory Rate Blood Pressure Blood Pressure [Left] O2 Sat by Pulse 96 94 94 Oximetry O2 Sat by Pulse Oximetry [ Anterior Bilateral Throughout] 03/02/21 03/02/21 03/02/21 08:36 08:41 08:46 Temperature Pulse Rate 96 H 91 H 92 H Respiratory Rate Blood Pressure Blood Pressure [Left] O2 Sat by Pulse 96 96 96 Oximetry O2 Sat by Pulse Oximetry [ Anterior Bilateral Throughout] 03/02/21 03/02/21 03/02/21 08:50 08:51 08:56 Temperature Pulse Rate 93 H 87 89 Respiratory Rate Blood Pressure Blood Pressure [Left] O2 Sat by Pulse 94 97 97 Oximetry O2 Sat by Pulse Oximetry [ Anterior Bilateral Throughout] 03/02/21 03/02/21 03/02/21 09:01 09:04 09:06 Temperature Pulse Rate 89 91 H 87 Respiratory Rate Blood Pressure Blood Pressure [Left] O2 Sat by Pulse 95 94 96 Oximetry O2 Sat by Pulse Oximetry [ Anterior Bilateral Throughout] 03/02/21 03/02/21 03/02/21 09:10 09:11 09:16 Temperature Pulse Rate 88 86 102 H Respiratory Rate Blood Pressure Blood Pressure [Left] O2 Sat by Pulse 94 95 100 Oximetry O2 Sat by Pulse Oximetry [ Anterior Bilateral Throughout] 03/02/21 03/02/21 03/02/21 09:17 09:21 09:26 Temperature Pulse Rate 104 H 94 H 97 H Respiratory Rate Blood Pressure Blood Pressure [Left] O2 Sat by Pulse 0 L 96 96 Oximetry O2 Sat by Pulse Oximetry [ Anterior Bilateral Throughout] 03/02/21 03/02/21 03/02/21 09:31 09:36 09:39 Temperature Pulse Rate 94 H 94 H 96 H Respiratory Rate Blood Pressure Blood Pressure [Left] O2 Sat by Pulse 97 97 94 Oximetry O2 Sat by Pulse Oximetry [ Anterior Bilateral Throughout] 03/02/21 03/02/21 03/02/21 09:41 09:46 09:50 Temperature Pulse Rate 99 H 98 H 100 H Respiratory Rate Blood Pressure Blood Pressure [Left] O2 Sat by Pulse 96 97 94 Oximetry O2 Sat by Pulse Oximetry [ Anterior Bilateral Throughout] 03/02/21 03/02/21 03/02/21 09:51 09:52 09:56 Temperature Pulse Rate 105 H 99 H Respiratory Rate Blood Pressure 142/92 Blood Pressure [Left] O2 Sat by Pulse 94 96 Oximetry O2 Sat by Pulse Oximetry [ Anterior Bilateral Throughout] 03/02/21 03/02/21 03/02/21 10:01 10:06 10:11 Temperature Pulse Rate 88 92 H 91 H Respiratory Rate Blood Pressure Blood Pressure [Left] O2 Sat by Pulse 97 96 96 Oximetry O2 Sat by Pulse Oximetry [ Anterior Bilateral Throughout] 03/02/21 03/02/21 03/02/21 10:13 10:16 10:21 Temperature Pulse Rate 97 H 94 H 90 Respiratory Rate Blood Pressure Blood Pressure [Left] O2 Sat by Pulse 94 96 95 Oximetry O2 Sat by Pulse Oximetry [ Anterior Bilateral Throughout] 03/02/21 03/02/21 03/02/21 10:26 10:31 10:36 Temperature Pulse Rate 93 H 93 H 94 H Respiratory Rate Blood Pressure Blood Pressure [Left] O2 Sat by Pulse 95 95 95 Oximetry O2 Sat by Pulse Oximetry [ Anterior Bilateral Throughout] 03/02/21 03/02/21 03/02/21 10:39 10:41 10:46 Temperature Pulse Rate 94 H 94 H 95 H Respiratory Rate Blood Pressure Blood Pressure [Left] O2 Sat by Pulse 94 96 95 Oximetry O2 Sat by Pulse Oximetry [ Anterior Bilateral Throughout] 03/02/21 03/02/21 03/02/21 10:48 10:51 10:55 Temperature Pulse Rate 103 H 93 H 96 H Respiratory Rate Blood Pressure Blood Pressure [Left] O2 Sat by Pulse 93 95 94 Oximetry O2 Sat by Pulse Oximetry [ Anterior Bilateral Throughout] 03/02/21 03/02/21 03/02/21 10:56 10:57 11:00 Temperature Pulse Rate 96 H 96 H 97 H Respiratory Rate Blood Pressure 136/77 Blood Pressure [Left] O2 Sat by Pulse 97 94 Oximetry O2 Sat by Pulse Oximetry [ Anterior Bilateral Throughout] 03/02/21 03/02/21 03/02/21 11:01 11:06 11:08 Temperature Pulse Rate 94 H 94 H 93 H Respiratory Rate Blood Pressure Blood Pressure [Left] O2 Sat by Pulse 96 95 94 Oximetry O2 Sat by Pulse Oximetry [ Anterior Bilateral Throughout] 03/02/21 03/02/21 03/02/21 11:11 11:16 11:21 Temperature Pulse Rate 94 H 103 H 89 Respiratory Rate Blood Pressure Blood Pressure [Left] O2 Sat by Pulse 95 96 95 Oximetry O2 Sat by Pulse Oximetry [ Anterior Bilateral Throughout] 03/02/21 03/02/21 03/02/21 11:26 11:27 11:28 Temperature Pulse Rate 92 H 92 H 101 H Respiratory Rate Blood Pressure 135/79 Blood Pressure [Left] O2 Sat by Pulse 95 94 Oximetry O2 Sat by Pulse Oximetry [ Anterior Bilateral Throughout] 03/02/21 03/02/21 03/02/21 11:31 11:36 11:41 Temperature Pulse Rate 105 H 94 H 95 H Respiratory Rate Blood Pressure Blood Pressure [Left] O2 Sat by Pulse 95 95 94 Oximetry O2 Sat by Pulse Oximetry [ Anterior Bilateral Throughout] 03/02/21 03/02/21 03/02/21 11:46 11:51 11:56 Temperature Pulse Rate 95 H 96 H 95 H Respiratory Rate Blood Pressure Blood Pressure [Left] O2 Sat by Pulse 97 97 97 Oximetry O2 Sat by Pulse Oximetry [ Anterior Bilateral Throughout] 03/02/21 03/02/21 03/02/21 11:57 12:01 12:06 Temperature Pulse Rate 91 H 93 H 94 H Respiratory Rate Blood Pressure 145/83 Blood Pressure [Left] O2 Sat by Pulse 98 97 Oximetry O2 Sat by Pulse Oximetry [ Anterior Bilateral Throughout] 03/02/21 03/02/21 03/02/21 12:11 12:16 12:21 Temperature Pulse Rate 92 H 93 H 92 H Respiratory Rate Blood Pressure Blood Pressure [Left] O2 Sat by Pulse 96 95 96 Oximetry O2 Sat by Pulse Oximetry [ Anterior Bilateral Throughout] 03/02/21 03/02/21 03/02/21 12:25 12:26 12:28 Temperature Pulse Rate 98 H 96 H 95 H Respiratory Rate Blood Pressure 142/92 Blood Pressure [Left] O2 Sat by Pulse 93 97 Oximetry O2 Sat by Pulse Oximetry [ Anterior Bilateral Throughout] 03/02/21 03/02/21 03/02/21 12:31 12:36 12:40 Temperature Pulse Rate 94 H 95 H 98 H Respiratory Rate Blood Pressure 144/88 Blood Pressure [Left] O2 Sat by Pulse 98 97 Oximetry O2 Sat by Pulse Oximetry [ Anterior Bilateral Throughout] 03/02/21 03/02/21 03/02/21 12:41 12:46 12:47 Temperature Pulse Rate 94 H 93 H 94 H Respiratory Rate Blood Pressure Blood Pressure [Left] O2 Sat by Pulse 97 95 94 Oximetry O2 Sat by Pulse Oximetry [ Anterior Bilateral Throughout] 03/02/21 03/02/21 03/02/21 12:51 12:56 12:57 Temperature Pulse Rate 92 H 92 H 92 H Respiratory Rate Blood Pressure 143/86 Blood Pressure [Left] O2 Sat by Pulse 97 96 Oximetry O2 Sat by Pulse Oximetry [ Anterior Bilateral Throughout] 03/02/21 03/02/21 03/02/21 13:01 13:06 13:11 Temperature Pulse Rate 90 93 H 91 H Respiratory Rate Blood Pressure Blood Pressure [Left] O2 Sat by Pulse 97 96 97 Oximetry O2 Sat by Pulse Oximetry [ Anterior Bilateral Throughout] 03/02/21 03/02/21 03/02/21 13:16 13:18 13:21 Temperature Pulse Rate 90 84 93 H Respiratory Rate Blood Pressure Blood Pressure [Left] O2 Sat by Pulse 96 94 97 Oximetry O2 Sat by Pulse Oximetry [ Anterior Bilateral Throughout] 03/02/21 03/02/21 03/02/21 13:26 13:28 13:31 Temperature Pulse Rate 92 H 95 H 90 Respiratory Rate Blood Pressure 143/86 Blood Pressure [Left] O2 Sat by Pulse 96 96 Oximetry O2 Sat by Pulse Oximetry [ Anterior Bilateral Throughout] 03/02/21 03/02/21 03/02/21 13:36 13:41 13:46 Temperature Pulse Rate 90 93 H 93 H Respiratory Rate Blood Pressure Blood Pressure [Left] O2 Sat by Pulse 97 97 97 Oximetry O2 Sat by Pulse Oximetry [ Anterior Bilateral Throughout] 03/02/21 03/02/21 03/02/21 13:51 13:56 13:58 Temperature Pulse Rate 92 H 91 H 87 Respiratory Rate Blood Pressure 157/90 Blood Pressure [Left] O2 Sat by Pulse 96 96 Oximetry O2 Sat by Pulse Oximetry [ Anterior Bilateral Throughout] 03/02/21 03/02/21 03/02/21 14:01 14:03 14:06 Temperature Pulse Rate 90 98 H 91 H Respiratory Rate Blood Pressure Blood Pressure [Left] O2 Sat by Pulse 96 93 98 Oximetry O2 Sat by Pulse Oximetry [ Anterior Bilateral Throughout] 03/02/21 03/02/21 03/02/21 14:08 14:11 14:15 Temperature Pulse Rate 91 H 88 96 H Respiratory Rate Blood Pressure Blood Pressure [Left] O2 Sat by Pulse 91 96 93 Oximetry O2 Sat by Pulse Oximetry [ Anterior Bilateral Throughout] 03/02/21 03/02/21 03/02/21 14:16 14:21 14:26 Temperature Pulse Rate 99 H 96 H 94 H Respiratory Rate Blood Pressure Blood Pressure [Left] O2 Sat by Pulse 97 96 95 Oximetry O2 Sat by Pulse Oximetry [ Anterior Bilateral Throughout] 03/02/21 03/02/21 03/02/21 14:28 14:31 14:36 Temperature Pulse Rate 93 H 95 H 95 H Respiratory Rate Blood Pressure 146/85 Blood Pressure [Left] O2 Sat by Pulse 97 97 Oximetry O2 Sat by Pulse Oximetry [ Anterior Bilateral Throughout] 03/02/21 03/02/21 03/02/21 14:41 14:45 14:46 Temperature Pulse Rate 92 H 97 H 93 H Respiratory Rate Blood Pressure Blood Pressure [Left] O2 Sat by Pulse 97 94 97 Oximetry O2 Sat by Pulse Oximetry [ Anterior Bilateral Throughout] 03/02/21 03/02/21 03/02/21 14:51 14:56 14:59 Temperature Pulse Rate 90 94 H 91 H Respiratory Rate Blood Pressure 155/78 Blood Pressure [Left] O2 Sat by Pulse 97 97 Oximetry O2 Sat by Pulse Oximetry [ Anterior Bilateral Throughout] 03/02/21 03/02/21 03/02/21 15:01 15:06 15:11 Temperature Pulse Rate 93 H 100 H 96 H Respiratory Rate Blood Pressure Blood Pressure [Left] O2 Sat by Pulse 97 97 96 Oximetry O2 Sat by Pulse Oximetry [ Anterior Bilateral Throughout] 03/02/21 03/02/21 03/02/21 15:16 15:21 15:26 Temperature Pulse Rate 93 H 92 H 92 H Respiratory Rate Blood Pressure Blood Pressure [Left] O2 Sat by Pulse 98 97 97 Oximetry O2 Sat by Pulse Oximetry [ Anterior Bilateral Throughout] 03/02/21 03/02/21 03/02/21 15:28 15:31 15:36 Temperature Pulse Rate 91 H 94 H 92 H Respiratory Rate Blood Pressure 139/93 Blood Pressure [Left] O2 Sat by Pulse 97 97 Oximetry O2 Sat by Pulse Oximetry [ Anterior Bilateral Throughout] 03/02/21 03/02/21 03/02/21 15:41 15:46 15:51 Temperature Pulse Rate 95 H 93 H 93 H Respiratory Rate Blood Pressure Blood Pressure [Left] O2 Sat by Pulse 97 97 95 Oximetry O2 Sat by Pulse Oximetry [ Anterior Bilateral Throughout] 03/02/21 03/02/21 03/02/21 15:53 15:56 15:57 Temperature Pulse Rate 93 H 88 88 Respiratory Rate Blood Pressure 141/88 Blood Pressure [Left] O2 Sat by Pulse 93 98 Oximetry O2 Sat by Pulse Oximetry [ Anterior Bilateral Throughout] 03/02/21 03/02/21 03/02/21 16:01 16:06 16:10 Temperature Pulse Rate 87 89 92 H Respiratory Rate Blood Pressure Blood Pressure [Left] O2 Sat by Pulse 96 96 94 Oximetry O2 Sat by Pulse Oximetry [ Anterior Bilateral Throughout] 03/02/21 03/02/21 03/02/21 16:11 16:16 16:17 Temperature Pulse Rate 87 88 92 H Respiratory Rate Blood Pressure Blood Pressure [Left] O2 Sat by Pulse 97 97 94 Oximetry O2 Sat by Pulse Oximetry [ Anterior Bilateral Throughout] 03/02/21 03/02/21 03/02/21 16:21 16:26 16:27 Temperature Pulse Rate 91 H 86 85 Respiratory Rate Blood Pressure 156/87 Blood Pressure [Left] O2 Sat by Pulse 97 96 Oximetry O2 Sat by Pulse Oximetry [ Anterior Bilateral Throughout] 03/02/21 03/02/21 03/02/21 16:31 16:36 16:41 Temperature Pulse Rate 84 84 85 Respiratory Rate Blood Pressure Blood Pressure [Left] O2 Sat by Pulse 95 95 95 Oximetry O2 Sat by Pulse Oximetry [ Anterior Bilateral Throughout] 03/02/21 03/02/21 03/02/21 16:46 16:47 16:51 Temperature Pulse Rate 83 83 84 Respiratory Rate Blood Pressure Blood Pressure [Left] O2 Sat by Pulse 95 94 98 Oximetry O2 Sat by Pulse Oximetry [ Anterior Bilateral Throughout] 03/02/21 03/02/21 03/02/21 16:56 16:57 17:01 Temperature Pulse Rate 88 86 88 Respiratory Rate Blood Pressure 149/90 Blood Pressure [Left] O2 Sat by Pulse 97 98 Oximetry O2 Sat by Pulse Oximetry [ Anterior Bilateral Throughout] - Exam Breasts: deferred Cardiovascular: Regular rate Lungs: Clear to auscultation Abdomen: Present: normal appearance, soft. Absent: distention, tenderness Uterus: Present: normal FHR: auscultation normal, category 1 Uterine Contraction Monitor Mode: External Cervical Dilatation: 2 Cervical Effacement Percentage: 60 station: -2 Uterine Contraction Pattern: Irregular Uterine Tone Measurement Phase: Resting Uterine Contraction Intensity: Moderate Extremities: normal Deep Tendon Reflex Grade: Normal +2 - Labs Labs: Abnormal Labs 03/01/21 03/01/21 03/02/21 11:33 11:33 00:44 Plt Count 133 L Creatinine 0.5 L Magnesium 4.30 H 03/02/21 03/02/21 06:29 12:51 Plt Count Creatinine Magnesium 5.10 H 6.20 H Laboratory Results - last 24 hr 03/02/21 03/02/21 03/02/21 00:44 06:29 12:51 Magnesium 4.30 H 5.10 H 6.20 H Coronavirus (PCR) 03/02/21 Unknown Magnesium Coronavirus (PCR) Negative
[2021-03-02] MEDS ORDERED: DINOPROSTONE 10 MG VAG SUPP VG ONE (19:32)
--- NOTE | 2021-03-02 19:37 | Event Note ---
Date: 03/02/21 POC reviewed with pt. Pt reports monitoring taken off for pm care; reports desires to eat dinner. RN @ BS and reports cervidil coming from pharmacy to be placed. Respirations clear to auscultation, no edema noted, DTR's 2+; pt appears without distress and stable. Denies DUONG, vision changes, and RUQ pain; precautions given and pt verbalizes understanding. All questions addressed. Plan to continue close monitoring as ordered, Magnesium Sulfate IV, pm care with dinner, and to place cervidil once available. Dr Boo aware. Anticipate
[2021-03-03] MEDS: MAGNESIUM SULFATE 40GM/1000ML 40 GM/1,000 ML BAG IV SCH (07:56)
--- NOTE | 2021-03-03 08:02 | Progress Note ---
Assessment and Plan A: 26 y.o. @ 36.6 wks, IOL d/t gHTN. Cervical exam: 3. Cervidil removed. P: Start Pitocin per protocol. Continue magnesium infusion. Watch for s/sx of pre eclampsia, worsening blood pressures. Anticipate . Subjective - Subjective Date of service: 03/03/21 (Starting to feel some contractions.) Principal diagnosis: IUP @ 36.6 wks PreE MGSO4, Pitocin Patient reports: movement normal, contractions, no new complaints, no loss of fluid, no vaginal bleeding Objective - Vital Signs Vital Signs: Vital Signs - 12hr 03/02/21 03/02/21 03/02/21 19:59 20:00 20:05 Temperature Pulse Rate 103 H 97 H 100 H Respiratory Rate Blood Pressure O2 Sat by Pulse 91 96 97 Oximetry O2 Sat by Pulse Oximetry [ Anterior Bilateral Throughout] 03/02/21 03/02/21 03/02/21 20:59 21:29 21:32 Temperature Pulse Rate 96 H 98 H Respiratory Rate Blood Pressure 161/88 163/94 163/94 O2 Sat by Pulse Oximetry O2 Sat by Pulse Oximetry [ Anterior Bilateral Throughout] 03/02/21 03/02/21 03/02/21 21:37 21:59 22:29 Temperature 98.5 F Pulse Rate 98 H 98 H Respiratory 18 Rate Blood Pressure 155/90 156/88 O2 Sat by Pulse Oximetry O2 Sat by Pulse 97 Oximetry [ Anterior Bilateral Throughout] 03/02/21 03/02/21 03/02/21 22:59 23:29 23:58 Temperature Pulse Rate 91 H 90 93 H Respiratory Rate Blood Pressure 137/78 135/77 145/87 O2 Sat by Pulse Oximetry O2 Sat by Pulse Oximetry [ Anterior Bilateral Throughout] 03/03/21 03/03/21 03/03/21 00:30 00:59 01:29 Temperature Pulse Rate 89 88 89 Respiratory Rate Blood Pressure 141/85 147/86 143/82 O2 Sat by Pulse Oximetry O2 Sat by Pulse Oximetry [ Anterior Bilateral Throughout] 03/03/21 03/03/21 03/03/21 01:58 02:59 03:28 Temperature Pulse Rate 89 89 88 Respiratory Rate Blood Pressure 136/82 143/87 144/84 O2 Sat by Pulse Oximetry O2 Sat by Pulse Oximetry [ Anterior Bilateral Throughout] 03/03/21 03/03/21 03/03/21 03:58 04:29 04:59 Temperature Pulse Rate 88 83 83 Respiratory Rate Blood Pressure 136/82 125/67 129/67 O2 Sat by Pulse Oximetry O2 Sat by Pulse Oximetry [ Anterior Bilateral Throughout] 03/03/21 03/03/21 03/03/21 05:29 05:59 06:29 Temperature Pulse Rate 84 86 81 Respiratory Rate Blood Pressure 153/78 144/88 128/70 O2 Sat by Pulse Oximetry O2 Sat by Pulse Oximetry [ Anterior Bilateral Throughout] 03/03/21 03/03/21 03/03/21 06:58 07:15 07:20 Temperature 98.4 F Pulse Rate 82 90 90 Respiratory 18 Rate Blood Pressure 131/72 O2 Sat by Pulse 96 97 Oximetry O2 Sat by Pulse 97 Oximetry [ Anterior Bilateral Throughout] 03/03/21 03/03/21 03/03/21 07:25 07:27 07:28 Temperature Pulse Rate 85 88 85 Respiratory Rate Blood Pressure 137/84 O2 Sat by Pulse 95 94 Oximetry O2 Sat by Pulse Oximetry [ Anterior Bilateral Throughout] 03/03/21 03/03/21 03/03/21 07:30 07:35 07:40 Temperature Pulse Rate 88 88 88 Respiratory Rate Blood Pressure O2 Sat by Pulse 97 97 97 Oximetry O2 Sat by Pulse Oximetry [ Anterior Bilateral Throughout] 03/03/21 03/03/21 03/03/21 07:45 07:50 07:55 Temperature Pulse Rate 90 93 H 86 Respiratory Rate Blood Pressure O2 Sat by Pulse 97 95 97 Oximetry O2 Sat by Pulse Oximetry [ Anterior Bilateral Throughout] - Exam Narrative Exam: Pt denies DUONG, blurred vision, spots before her eyes, chest pain, shortness of breath, and upper abdominal pain. Breasts: deferred Cardiovascular: Regular rate Lungs: Normal air movement Abdomen: Present: normal appearance, soft Vulva: both: normal Uterus: Present: normal FHR: category 1 Uterine Contraction Monitor Mode: External Cervical Dilatation: 2 (Cervidil removed. ) Cervical Effacement Percentage: 60 station: -3 Uterine Contraction Pattern: Irregular Uterine Tone Measurement Phase: Resting Uterine Contraction Intensity: Mild - Labs Labs: Abnormal Labs 03/01/21 03/01/21 03/02/21 11:33 11:33 00:44 Plt Count 133 L Creatinine 0.5 L Magnesium 4.30 H 03/02/21 03/02/21 03/03/21 06:29 12:51 00:13 Plt Count Creatinine Magnesium 5.10 H 6.20 H 5.70 H Laboratory Results - last 24 hr 03/02/21 03/02/21 03/03/21 12:51 Unknown 00:13 Magnesium 6.20 H 5.70 H Coronavirus (PCR) Negative
[2021-03-03] MEDS: OXYTOCIN DRIP 30 UNITS/500 ML BAG IV SCH (08:07)
[2021-03-03] MEDS: PRENATAL VIT27-FE FUMARATE-FOLIC ACID VIT TAB PO SCH (10:19)
--- NOTE | 2021-03-03 13:18 | Progress Note ---
Assessment and Plan A: 26 y.o. @ 36.6 wks, IOL d/t gHTN. Cervical exam /3. Pitocin @ 10mu. P: Continue with Pitocin per protocol. Continue with magnesium infusion. Continue monitor for s/sx of worsening pre eclampsia. Subjective - Subjective Date of service: 03/03/21 (Pt feeling some contractions.) Principal diagnosis: IUP @ 36.6 wks PreE MGSO4, Pitocin Patient reports: movement normal, contractions, no new complaints, no loss of fluid, no vaginal bleeding Objective - Vital Signs Vital Signs: Vital Signs - 12hr 03/03/21 03/03/21 03/03/21 01:29 01:58 02:59 Temperature Pulse Rate 89 89 89 Respiratory Rate Blood Pressure 143/82 136/82 143/87 O2 Sat by Pulse Oximetry O2 Sat by Pulse Oximetry [ Anterior Bilateral Throughout] 03/03/21 03/03/21 03/03/21 03:28 03:58 04:29 Temperature Pulse Rate 88 88 83 Respiratory Rate Blood Pressure 144/84 136/82 125/67 O2 Sat by Pulse Oximetry O2 Sat by Pulse Oximetry [ Anterior Bilateral Throughout] 03/03/21 03/03/21 03/03/21 04:59 05:29 05:59 Temperature Pulse Rate 83 84 86 Respiratory Rate Blood Pressure 129/67 153/78 144/88 O2 Sat by Pulse Oximetry O2 Sat by Pulse Oximetry [ Anterior Bilateral Throughout] 03/03/21 03/03/21 03/03/21 06:29 06:58 07:15 Temperature Pulse Rate 81 82 90 Respiratory Rate Blood Pressure 128/70 131/72 O2 Sat by Pulse 96 Oximetry O2 Sat by Pulse Oximetry [ Anterior Bilateral Throughout] 03/03/21 03/03/21 03/03/21 07:20 07:25 07:27 Temperature 98.4 F Pulse Rate 90 85 88 Respiratory 18 Rate Blood Pressure O2 Sat by Pulse 97 95 94 Oximetry O2 Sat by Pulse 97 Oximetry [ Anterior Bilateral Throughout] 03/03/21 03/03/21 03/03/21 07:28 07:30 07:35 Temperature Pulse Rate 85 88 88 Respiratory Rate Blood Pressure 137/84 O2 Sat by Pulse 97 97 Oximetry O2 Sat by Pulse Oximetry [ Anterior Bilateral Throughout] 03/03/21 03/03/21 03/03/21 07:40 07:45 07:50 Temperature Pulse Rate 88 90 93 H Respiratory Rate Blood Pressure O2 Sat by Pulse 97 97 95 Oximetry O2 Sat by Pulse Oximetry [ Anterior Bilateral Throughout] 03/03/21 03/03/21 03/03/21 07:55 07:58 08:00 Temperature Pulse Rate 86 83 85 Respiratory Rate Blood Pressure 148/89 O2 Sat by Pulse 97 96 Oximetry O2 Sat by Pulse Oximetry [ Anterior Bilateral Throughout] 03/03/21 03/03/21 03/03/21 08:05 08:10 08:15 Temperature Pulse Rate 88 87 84 Respiratory Rate Blood Pressure O2 Sat by Pulse 97 97 97 Oximetry O2 Sat by Pulse Oximetry [ Anterior Bilateral Throughout] 03/03/21 03/03/21 03/03/21 08:20 08:25 08:29 Temperature Pulse Rate 90 86 85 Respiratory Rate Blood Pressure 156/92 O2 Sat by Pulse 97 97 Oximetry O2 Sat by Pulse Oximetry [ Anterior Bilateral Throughout] 03/03/21 03/03/21 03/03/21 08:30 08:35 08:40 Temperature Pulse Rate 87 83 83 Respiratory Rate Blood Pressure O2 Sat by Pulse 97 98 98 Oximetry O2 Sat by Pulse Oximetry [ Anterior Bilateral Throughout] 03/03/21 03/03/21 03/03/21 08:45 08:50 08:55 Temperature Pulse Rate 87 87 87 Respiratory Rate Blood Pressure O2 Sat by Pulse 97 97 97 Oximetry O2 Sat by Pulse Oximetry [ Anterior Bilateral Throughout] 03/03/21 03/03/21 03/03/21 08:59 09:00 09:05 Temperature Pulse Rate 87 89 86 Respiratory Rate Blood Pressure 143/91 O2 Sat by Pulse 97 97 Oximetry O2 Sat by Pulse Oximetry [ Anterior Bilateral Throughout] 03/03/21 03/03/21 03/03/21 09:10 09:15 09:20 Temperature Pulse Rate 89 90 90 Respiratory Rate Blood Pressure O2 Sat by Pulse 98 96 95 Oximetry O2 Sat by Pulse Oximetry [ Anterior Bilateral Throughout] 03/03/21 03/03/21 03/03/21 09:25 09:30 09:35 Temperature Pulse Rate 87 91 H 87 Respiratory Rate Blood Pressure 161/88 O2 Sat by Pulse 96 97 97 Oximetry O2 Sat by Pulse Oximetry [ Anterior Bilateral Throughout] 03/03/21 03/03/21 03/03/21 09:40 09:45 09:50 Temperature Pulse Rate 89 89 94 H Respiratory Rate Blood Pressure O2 Sat by Pulse 97 97 98 Oximetry O2 Sat by Pulse Oximetry [ Anterior Bilateral Throughout] 03/03/21 03/03/21 03/03/21 09:55 10:00 10:05 Temperature Pulse Rate 101 H 89 93 H Respiratory Rate Blood Pressure 145/92 O2 Sat by Pulse 97 97 97 Oximetry O2 Sat by Pulse Oximetry [ Anterior Bilateral Throughout] 03/03/21 03/03/21 03/03/21 10:10 10:15 10:17 Temperature Pulse Rate 93 H 96 H 90 Respiratory Rate Blood Pressure 144/87 O2 Sat by Pulse 97 96 Oximetry O2 Sat by Pulse Oximetry [ Anterior Bilateral Throughout] 03/03/21 03/03/21 03/03/21 10:20 10:25 10:29 Temperature Pulse Rate 97 H 93 H 93 H Respiratory Rate Blood Pressure 164/89 O2 Sat by Pulse 98 97 Oximetry O2 Sat by Pulse Oximetry [ Anterior Bilateral Throughout] 03/03/21 03/03/21 03/03/21 10:30 10:35 10:40 Temperature Pulse Rate 98 H 96 H 97 H Respiratory Rate Blood Pressure O2 Sat by Pulse 96 97 97 Oximetry O2 Sat by Pulse Oximetry [ Anterior Bilateral Throughout] 03/03/21 03/03/21 03/03/21 10:45 10:50 10:55 Temperature Pulse Rate 103 H 98 H 91 H Respiratory Rate Blood Pressure O2 Sat by Pulse 98 96 97 Oximetry O2 Sat by Pulse Oximetry [ Anterior Bilateral Throughout] 03/03/21 03/03/21 03/03/21 10:59 11:00 11:05 Temperature Pulse Rate 91 H 94 H 88 Respiratory Rate Blood Pressure 126/63 O2 Sat by Pulse 97 96 Oximetry O2 Sat by Pulse Oximetry [ Anterior Bilateral Throughout] 03/03/21 03/03/21 03/03/21 11:10 11:15 11:20 Temperature Pulse Rate 88 88 92 H Respiratory Rate Blood Pressure O2 Sat by Pulse 96 97 97 Oximetry O2 Sat by Pulse Oximetry [ Anterior Bilateral Throughout] 03/03/21 03/03/21 03/03/21 11:25 11:29 11:30 Temperature Pulse Rate 94 H 85 87 Respiratory Rate Blood Pressure 139/86 O2 Sat by Pulse 97 96 Oximetry O2 Sat by Pulse Oximetry [ Anterior Bilateral Throughout] 03/03/21 03/03/21 03/03/21 11:35 11:40 11:45 Temperature Pulse Rate 88 91 H 86 Respiratory Rate Blood Pressure O2 Sat by Pulse 98 98 98 Oximetry O2 Sat by Pulse Oximetry [ Anterior Bilateral Throughout] 03/03/21 03/03/21 03/03/21 11:50 11:55 11:59 Temperature Pulse Rate 93 H 91 H 85 Respiratory Rate Blood Pressure 142/84 O2 Sat by Pulse 98 97 Oximetry O2 Sat by Pulse Oximetry [ Anterior Bilateral Throughout] 03/03/21 03/03/21 03/03/21 12:00 12:05 12:10 Temperature 98.1 F Pulse Rate 88 91 H 84 Respiratory 16 Rate Blood Pressure O2 Sat by Pulse 97 96 99 Oximetry O2 Sat by Pulse Oximetry [ Anterior Bilateral Throughout] 03/03/21 03/03/21 03/03/21 12:15 12:20 12:25 Temperature Pulse Rate 86 87 83 Respiratory Rate Blood Pressure O2 Sat by Pulse 96 97 97 Oximetry O2 Sat by Pulse Oximetry [ Anterior Bilateral Throughout] 03/03/21 03/03/21 03/03/21 12:29 12:30 12:35 Temperature Pulse Rate 84 94 H 84 Respiratory Rate Blood Pressure 148/89 O2 Sat by Pulse 95 96 Oximetry O2 Sat by Pulse Oximetry [ Anterior Bilateral Throughout] 03/03/21 03/03/21 03/03/21 12:40 12:45 12:50 Temperature Pulse Rate 82 95 H 86 Respiratory Rate Blood Pressure O2 Sat by Pulse 98 98 96 Oximetry O2 Sat by Pulse Oximetry [ Anterior Bilateral Throughout] 03/03/21 03/03/21 03/03/21 12:55 12:59 13:00 Temperature Pulse Rate 84 94 H 83 Respiratory Rate Blood Pressure 227/91 O2 Sat by Pulse 95 99 Oximetry O2 Sat by Pulse Oximetry [ Anterior Bilateral Throughout] 03/03/21 03/03/21 03/03/21 13:03 13:05 13:10 Temperature Pulse Rate 82 88 83 Respiratory Rate Blood Pressure 161/90 O2 Sat by Pulse 97 98 Oximetry O2 Sat by Pulse Oximetry [ Anterior Bilateral Throughout] - Exam Narrative Exam: Discussed with patient plan of care. Will continue to increase Pitocin per protocol. Continues to deny DUONG, blurred vision, spots before her eyes, chest pain, shortness of breath, and upper abdominal pain. Discussed with patient should these symptoms occur to let the RN know immediately. Breasts: deferred Cardiovascular: Regular rate Lungs: Normal air movement Abdomen: Present: normal appearance, soft Vulva: both: normal FHR: category 1 Uterine Contraction Monitor Mode: External Cervical Dilatation: 3 Cervical Effacement Percentage: 60 station: -3 Uterine Contraction Pattern: Regular Uterine Tone Measurement Phase: Resting Uterine Contraction Intensity: Moderate Extremities: normal - Labs Labs: Abnormal Labs 03/01/21 03/01/21 03/02/21 11:33 11:33 00:44 Plt Count 133 L Creatinine 0.5 L Magnesium 4.30 H 03/02/21 03/02/21 03/03/21 06:29 12:51 00:13 Plt Count Creatinine Magnesium 5.10 H 6.20 H 5.70 H 03/03/21 07:42 Plt Count Creatinine Magnesium 6.10 H Laboratory Results - last 24 hr 03/02/21 03/02/21 03/03/21 12:51 Unknown 00:13 Magnesium 6.20 H 5.70 H Coronavirus (PCR) Negative 03/03/21 07:42 Magnesium 6.10 H Coronavirus (PCR)
[2021-03-03] MEDS ORDERED: ePHEDrine SULFATE 50 MG/1 ML INJ ONE (16:24)
[2021-03-03] MEDS ORDERED: ePHEDrine SULFATE 50 MG/1 ML INJ IV PRN (17:41)
[2021-03-03] MEDS ORDERED: NALOXONE 2 MG/2 ML INJ IV PRN (17:41)
--- NOTE | 2021-03-03 17:41 | Anesthesia Consultation ---
Anesthesia Consult and Med Hx Date of service: 03/03/21 - Airway Anesthetic Teeth Evaluation: Good ROM Head & Neck: Adequate Mental/Hyoid Distance: Adequate Mallampati Class: Class III Intubation Access Assessment: Probably Good - Pulmonary Exam CTA: Yes - Cardiac Exam Cardiac Exam: RRR - Pre-Operative Health Status ASA Pre-Surgery Classification: ASA3 Proposed Anesthetic Plan: Epidural - Pulmonary Hx Smoking: No Hx Asthma: No Hx Respiratory Symptoms: No SOB: No COPD: No Home Oxygen Therapy: No Hx Pneumonia: No Hx Sleep Apnea: No - Cardiovascular System Hx Hypertension: Yes (PRESENT ) Hx Coronary Artery Disease: No Hx Heart Attack/AMI: No Hx Angina: No Hx Percutaneous Transluminal Coronary Angioplasty (PTCA): No Hx Cardia Arrhythmia: No Hx Pacemaker: No Hx Internal Defibrillator: No Hx Valvular Heart Disease: No Hx Heart Murmur: No Hx Peripheral Vascular Disease: No - Central Nervous System Hx Neuromuscular Disorder: No Hx Seizures: No CVA: No Hx Back Pain: No Hx Psychiatric Problems: No - Gastrointestinal Hx Ulcer: No Hx Gastroesophageal Reflux Disease: No - Endocrine Hx Renal Disease: No Hx End Stage Renal Disease: No Hx Cirrhosis: No Hx Liver Disease: No Hx Insulin Dependent Diabetes: No Hx Non-Insulin Dependent Diabetes: No Hx Thyroid Disease: No Hx Hypothyroidism: No Hx Hyperthyroidism: No - Hematic Hx Anemia: No Hx Sickle Cell Disease: No - Other Systems Hx Alcohol Use: No Hx Substance Use: No Hx Cancer: No Hx Obesity: Yes
--- NOTE | 2021-03-03 17:57 | Progress Note ---
Labor Epidural - Labor Epidural Start Time: 16:34 Stop Time: 17:08 Performed by:: ESTRELLA PÉREZ Procedure: Patient is requesting a laboring epidural for laboring pain. Patient IDed, H&P reviewed, all questions and concerns were answered, and consent was signed. Timeout was performed at bedside. Patient in sitting position. Sterile prep and drape was performed. [4] ml of 1% lidocaine skin wheal at L[3]- L [4]. 18- gauge Swathi epidural needle was advanced to loss of resistance with saline technique 9cm x two attempts. First attempt unable to thread catheter. Second attempt catheter threads easily. Negative paresthesia, Negative CSF, negative blood. Epidural catheter advanced to [13] centimeters. [NEGATIVE] Aspiration [NEGATIVE] test dose. Sterile dressing applied. Patient tolerated procedure.
[2021-03-03] MEDS ORDERED: fentaNYL-BUPIV 2 MCG/ML-0.125% 200 MCG/100 ML BAG EPIDURAL SCH (18:00)
--- NOTE | 2021-03-03 18:32 | Progress Note ---
Assessment and Plan A: 26 y.o. @ 36.6 wks, IOL for gHTN. Cervical exam 4.5/70/-2. P: Continue with Pitocin per protocol. Continue with magnesium infusion. Continue to monitor for s/sx of pre eclampsia. Anticipate . Subjective - Subjective Date of service: 03/03/21 (Comfortable with epidural. ) Principal diagnosis: IUP @ 36.6 wks PreE MGSO4, Pitocin Patient reports: movement normal, contractions, other (Denies DUONG, blurred vision, spots before her eyes, shortness of breath, and upper abdominal pain. ), no new complaints, no loss of fluid, no vaginal bleeding Objective - Vital Signs Vital Signs: Vital Signs - 12hr 03/03/21 03/03/21 03/03/21 06:29 06:58 07:15 Temperature Pulse Rate 81 82 90 Respiratory Rate Blood Pressure 128/70 131/72 O2 Sat by Pulse 96 Oximetry O2 Sat by Pulse Oximetry [ Anterior Bilateral Throughout] 03/03/21 03/03/21 03/03/21 07:20 07:25 07:27 Temperature 98.4 F Pulse Rate 90 85 88 Respiratory 18 Rate Blood Pressure O2 Sat by Pulse 97 95 94 Oximetry O2 Sat by Pulse 97 Oximetry [ Anterior Bilateral Throughout] 03/03/21 03/03/21 03/03/21 07:28 07:30 07:35 Temperature Pulse Rate 85 88 88 Respiratory Rate Blood Pressure 137/84 O2 Sat by Pulse 97 97 Oximetry O2 Sat by Pulse Oximetry [ Anterior Bilateral Throughout] 03/03/21 03/03/21 03/03/21 07:40 07:45 07:50 Temperature Pulse Rate 88 90 93 H Respiratory Rate Blood Pressure O2 Sat by Pulse 97 97 95 Oximetry O2 Sat by Pulse Oximetry [ Anterior Bilateral Throughout] 03/03/21 03/03/21 03/03/21 07:55 07:58 08:00 Temperature Pulse Rate 86 83 85 Respiratory Rate Blood Pressure 148/89 O2 Sat by Pulse 97 96 Oximetry O2 Sat by Pulse Oximetry [ Anterior Bilateral Throughout] 03/03/21 03/03/21 03/03/21 08:05 08:10 08:15 Temperature Pulse Rate 88 87 84 Respiratory Rate Blood Pressure O2 Sat by Pulse 97 97 97 Oximetry O2 Sat by Pulse Oximetry [ Anterior Bilateral Throughout] 07/03/03/21 03/03/21 08:20 08:25 08:29 Temperature Pulse Rate 90 86 85 Respiratory Rate Blood Pressure 156/92 O2 Sat by Pulse 97 97 Oximetry O2 Sat by Pulse Oximetry [ Anterior Bilateral Throughout] 03/03/21 03/03/21 03/03/21 08:30 08:35 08:40 Temperature Pulse Rate 87 83 83 Respiratory Rate Blood Pressure O2 Sat by Pulse 97 98 98 Oximetry O2 Sat by Pulse Oximetry [ Anterior Bilateral Throughout] 03/03/21 03/03/21 03/03/21 08:45 08:50 08:55 Temperature Pulse Rate 87 87 87 Respiratory Rate Blood Pressure O2 Sat by Pulse 97 97 97 Oximetry O2 Sat by Pulse Oximetry [ Anterior Bilateral Throughout] 03/03/21 03/03/21 03/03/21 08:59 09:00 09:05 Temperature Pulse Rate 87 89 86 Respiratory Rate Blood Pressure 143/91 O2 Sat by Pulse 97 97 Oximetry O2 Sat by Pulse Oximetry [ Anterior Bilateral Throughout] 03/03/21 03/03/21 03/03/21 09:10 09:15 09:20 Temperature Pulse Rate 89 90 90 Respiratory Rate Blood Pressure O2 Sat by Pulse 98 96 95 Oximetry O2 Sat by Pulse Oximetry [ Anterior Bilateral Throughout] 03/03/21 03/03/21 03/03/21 09:25 09:30 09:35 Temperature Pulse Rate 87 91 H 87 Respiratory Rate Blood Pressure 161/88 O2 Sat by Pulse 96 97 97 Oximetry O2 Sat by Pulse Oximetry [ Anterior Bilateral Throughout] 03/03/21 03/03/21 03/03/21 09:40 09:45 09:50 Temperature Pulse Rate 89 89 94 H Respiratory Rate Blood Pressure O2 Sat by Pulse 97 97 98 Oximetry O2 Sat by Pulse Oximetry [ Anterior Bilateral Throughout] 03/03/21 03/03/21 03/03/21 09:55 10:00 10:05 Temperature Pulse Rate 101 H 89 93 H Respiratory Rate Blood Pressure 145/92 O2 Sat by Pulse 97 97 97 Oximetry O2 Sat by Pulse Oximetry [ Anterior Bilateral Throughout] 03/03/21 03/03/21 03/03/21 10:10 10:15 10:17 Temperature Pulse Rate 93 H 96 H 90 Respiratory Rate Blood Pressure 144/87 O2 Sat by Pulse 97 96 Oximetry O2 Sat by Pulse Oximetry [ Anterior Bilateral Throughout] 03/03/21 03/03/21 03/03/21 10:20 10:25 10:29 Temperature Pulse Rate 97 H 93 H 93 H Respiratory Rate Blood Pressure 164/89 O2 Sat by Pulse 98 97 Oximetry O2 Sat by Pulse Oximetry [ Anterior Bilateral Throughout] 03/03/21 03/03/21 03/03/21 10:30 10:35 10:40 Temperature Pulse Rate 98 H 96 H 97 H Respiratory Rate Blood Pressure O2 Sat by Pulse 96 97 97 Oximetry O2 Sat by Pulse Oximetry [ Anterior Bilateral Throughout] 03/03/21 03/03/21 03/03/21 10:45 10:50 10:55 Temperature Pulse Rate 103 H 98 H 91 H Respiratory Rate Blood Pressure O2 Sat by Pulse 98 96 97 Oximetry O2 Sat by Pulse Oximetry [ Anterior Bilateral Throughout] 03/03/21 03/03/21 03/03/21 10:59 11:00 11:05 Temperature Pulse Rate 91 H 94 H 88 Respiratory Rate Blood Pressure 126/63 O2 Sat by Pulse 97 96 Oximetry O2 Sat by Pulse Oximetry [ Anterior Bilateral Throughout] 03/03/21 03/03/21 03/03/21 11:10 11:15 11:20 Temperature Pulse Rate 88 88 92 H Respiratory Rate Blood Pressure O2 Sat by Pulse 96 97 97 Oximetry O2 Sat by Pulse Oximetry [ Anterior Bilateral Throughout] 03/03/21 03/03/21 03/03/21 11:25 11:29 11:30 Temperature Pulse Rate 94 H 85 87 Respiratory Rate Blood Pressure 139/86 O2 Sat by Pulse 97 96 Oximetry O2 Sat by Pulse Oximetry [ Anterior Bilateral Throughout] 03/03/21 03/03/21 03/03/21 11:35 11:40 11:45 Temperature Pulse Rate 88 91 H 86 Respiratory Rate Blood Pressure O2 Sat by Pulse 98 98 98 Oximetry O2 Sat by Pulse Oximetry [ Anterior Bilateral Throughout] 03/03/21 03/03/21 03/03/21 11:50 11:55 11:59 Temperature Pulse Rate 93 H 91 H 85 Respiratory Rate Blood Pressure 142/84 O2 Sat by Pulse 98 97 Oximetry O2 Sat by Pulse Oximetry [ Anterior Bilateral Throughout] 03/03/21 03/03/21 03/03/21 12:00 12:05 12:10 Temperature 98.1 F Pulse Rate 88 91 H 84 Respiratory 16 Rate Blood Pressure O2 Sat by Pulse 97 96 99 Oximetry O2 Sat by Pulse Oximetry [ Anterior Bilateral Throughout] 03/03/21 03/03/21 03/03/21 12:15 12:20 12:25 Temperature Pulse Rate 86 87 83 Respiratory Rate Blood Pressure O2 Sat by Pulse 96 97 97 Oximetry O2 Sat by Pulse Oximetry [ Anterior Bilateral Throughout] 03/03/21 03/03/21 03/03/21 12:29 12:30 12:35 Temperature Pulse Rate 84 94 H 84 Respiratory Rate Blood Pressure 148/89 O2 Sat by Pulse 95 96 Oximetry O2 Sat by Pulse Oximetry [ Anterior Bilateral Throughout] 03/03/21 03/03/21 03/03/21 12:40 12:45 12:50 Temperature Pulse Rate 82 95 H 86 Respiratory Rate Blood Pressure O2 Sat by Pulse 98 98 96 Oximetry O2 Sat by Pulse Oximetry [ Anterior Bilateral Throughout] 03/03/21 03/03/21 03/03/21 12:55 12:59 13:00 Temperature Pulse Rate 84 94 H 83 Respiratory Rate Blood Pressure 227/91 O2 Sat by Pulse 95 99 Oximetry O2 Sat by Pulse Oximetry [ Anterior Bilateral Throughout] 03/03/21 03/03/21 03/03/21 13:03 13:05 13:10 Temperature Pulse Rate 82 88 83 Respiratory Rate Blood Pressure 161/90 O2 Sat by Pulse 97 98 Oximetry O2 Sat by Pulse Oximetry [ Anterior Bilateral Throughout] 03/03/21 03/03/21 03/03/21 13:15 13:19 13:20 Temperature Pulse Rate 87 87 89 Respiratory Rate Blood Pressure 157/84 O2 Sat by Pulse 97 97 Oximetry O2 Sat by Pulse Oximetry [ Anterior Bilateral Throughout] 03/03/21 03/03/21 03/03/21 13:25 13:30 13:34 Temperature Pulse Rate 87 88 87 Respiratory Rate Blood Pressure 138/86 O2 Sat by Pulse 97 95 Oximetry O2 Sat by Pulse Oximetry [ Anterior Bilateral Throughout] 03/03/21 03/03/21 03/03/21 13:35 13:40 13:45 Temperature Pulse Rate 91 H 86 87 Respiratory Rate Blood Pressure O2 Sat by Pulse 96 99 96 Oximetry O2 Sat by Pulse Oximetry [ Anterior Bilateral Throughout] 03/03/21 03/03/21 03/03/21 13:50 13:52 13:55 Temperature Pulse Rate 88 95 H 86 Respiratory Rate Blood Pressure O2 Sat by Pulse 97 94 97 Oximetry O2 Sat by Pulse Oximetry [ Anterior Bilateral Throughout] 03/03/21 03/03/21 03/03/21 14:00 14:05 14:10 Temperature 98.7 F Pulse Rate 84 90 86 Respiratory Rate Blood Pressure O2 Sat by Pulse 99 96 97 Oximetry O2 Sat by Pulse Oximetry [ Anterior Bilateral Throughout] 03/03/21 03/03/21 03/03/21 14:15 14:20 14:22 Temperature Pulse Rate 85 88 90 Respiratory Rate Blood Pressure O2 Sat by Pulse 96 97 93 Oximetry O2 Sat by Pulse Oximetry [ Anterior Bilateral Throughout] 03/03/21 03/03/21 03/03/21 14:25 14:30 14:35 Temperature Pulse Rate 85 86 84 Respiratory Rate Blood Pressure O2 Sat by Pulse 96 96 97 Oximetry O2 Sat by Pulse Oximetry [ Anterior Bilateral Throughout] 03/03/21 03/03/21 03/03/21 14:40 14:45 14:50 Temperature Pulse Rate 82 84 84 Respiratory Rate Blood Pressure O2 Sat by Pulse 97 97 96 Oximetry O2 Sat by Pulse Oximetry [ Anterior Bilateral Throughout] 03/03/21 03/03/21 03/03/21 14:55 15:00 15:04 Temperature Pulse Rate 87 83 82 Respiratory Rate Blood Pressure 155/94 O2 Sat by Pulse 96 99 Oximetry O2 Sat by Pulse Oximetry [ Anterior Bilateral Throughout] 03/03/21 03/03/21 03/03/21 15:05 15:09 15:10 Temperature Pulse Rate 84 82 86 Respiratory Rate Blood Pressure O2 Sat by Pulse 98 94 98 Oximetry O2 Sat by Pulse Oximetry [ Anterior Bilateral Throughout] 03/03/21 03/03/21 03/03/21 15:15 15:20 15:21 Temperature Pulse Rate 92 H 92 H 88 Respiratory Rate Blood Pressure 159/93 O2 Sat by Pulse 99 98 Oximetry O2 Sat by Pulse Oximetry [ Anterior Bilateral Throughout] 03/03/21 03/03/21 03/03/21 15:25 15:30 15:35 Temperature Pulse Rate 82 85 91 H Respiratory Rate Blood Pressure 150/89 O2 Sat by Pulse 98 100 100 Oximetry O2 Sat by Pulse Oximetry [ Anterior Bilateral Throughout] 03/03/21 03/03/21 03/03/21 15:40 15:46 15:49 Temperature 98.7 F Pulse Rate 91 H 90 Respiratory Rate Blood Pressure O2 Sat by Pulse 100 99 Oximetry O2 Sat by Pulse Oximetry [ Anterior Bilateral Throughout] 03/03/21 03/03/21 03/03/21 15:50 15:51 15:56 Temperature Pulse Rate 84 88 88 Respiratory Rate Blood Pressure 158/94 O2 Sat by Pulse 99 97 Oximetry O2 Sat by Pulse Oximetry [ Anterior Bilateral Throughout] 03/03/21 03/03/21 03/03/21 15:58 16:00 16:01 Temperature 98.7 F Pulse Rate 86 81 Respiratory 18 Rate Blood Pressure O2 Sat by Pulse 91 98 Oximetry O2 Sat by Pulse Oximetry [ Anterior Bilateral Throughout] 03/03/21 03/03/21 03/03/21 16:05 16:06 16:11 Temperature Pulse Rate 83 83 90 Respiratory Rate Blood Pressure 166/94 O2 Sat by Pulse 92 100 96 Oximetry O2 Sat by Pulse Oximetry [ Anterior Bilateral Throughout] 03/03/21 03/03/21 03/03/21 16:16 16:19 16:21 Temperature Pulse Rate 87 82 86 Respiratory Rate Blood Pressure 160/92 O2 Sat by Pulse 98 97 Oximetry O2 Sat by Pulse Oximetry [ Anterior Bilateral Throughout] 03/03/21 03/03/21 03/03/21 16:22 16:26 16:29 Temperature Pulse Rate 84 83 80 Respiratory Rate Blood Pressure O2 Sat by Pulse 93 93 94 Oximetry O2 Sat by Pulse Oximetry [ Anterior Bilateral Throughout] 03/03/21 03/03/21 03/03/21 16:31 16:36 16:41 Temperature Pulse Rate 85 103 H 91 H Respiratory Rate Blood Pressure O2 Sat by Pulse 93 98 96 Oximetry O2 Sat by Pulse Oximetry [ Anterior Bilateral Throughout] 03/03/21 03/03/21 03/03/21 16:45 16:46 16:49 Temperature Pulse Rate 87 92 H 87 Respiratory Rate Blood Pressure 154/95 155/91 O2 Sat by Pulse 96 Oximetry O2 Sat by Pulse Oximetry [ Anterior Bilateral Throughout] 03/03/21 03/03/21 03/03/21 16:51 16:56 16:58 Temperature Pulse Rate 97 H 89 89 Respiratory Rate Blood Pressure 141/84 145/84 O2 Sat by Pulse 99 99 Oximetry O2 Sat by Pulse Oximetry [ Anterior Bilateral Throughout] 03/03/21 03/03/21 03/03/21 17:00 17:01 17:02 Temperature Pulse Rate 86 86 80 Respiratory Rate Blood Pressure 146/83 144/79 O2 Sat by Pulse 97 Oximetry O2 Sat by Pulse Oximetry [ Anterior Bilateral Throughout] 03/03/21 03/03/21 03/03/21 17:04 17:06 17:08 Temperature Pulse Rate 85 87 88 Respiratory Rate Blood Pressure 143/81 143/83 148/89 O2 Sat by Pulse 98 Oximetry O2 Sat by Pulse Oximetry [ Anterior Bilateral Throughout] 03/03/21 03/03/21 03/03/21 17:10 17:11 17:12 Temperature Pulse Rate 93 H 87 87 Respiratory Rate Blood Pressure 148/87 150/90 O2 Sat by Pulse 94 Oximetry O2 Sat by Pulse Oximetry [ Anterior Bilateral Throughout] 03/03/21 03/03/21 03/03/21 17:14 17:16 17:17 Temperature Pulse Rate 82 78 78 Respiratory Rate Blood Pressure 148/90 130/72 O2 Sat by Pulse 96 93 Oximetry O2 Sat by Pulse Oximetry [ Anterior Bilateral Throughout] 03/03/21 03/03/21 03/03/21 17:18 17:20 17:21 Temperature Pulse Rate 78 77 80 Respiratory Rate Blood Pressure 134/76 133/72 O2 Sat by Pulse 96 Oximetry O2 Sat by Pulse Oximetry [ Anterior Bilateral Throughout] 03/03/21 03/03/21 03/03/21 17:22 17:23 17:24 Temperature Pulse Rate 81 78 81 Respiratory Rate Blood Pressure 137/76 136/76 O2 Sat by Pulse 94 Oximetry O2 Sat by Pulse Oximetry [ Anterior Bilateral Throughout] 03/03/21 03/03/21 03/03/21 17:26 17:29 17:31 Temperature Pulse Rate 73 79 76 Respiratory Rate Blood Pressure 137/86 O2 Sat by Pulse 96 94 94 Oximetry O2 Sat by Pulse Oximetry [ Anterior Bilateral Throughout] 03/03/21 03/03/21 03/03/21 17:35 17:36 17:39 Temperature Pulse Rate 77 74 74 Respiratory Rate Blood Pressure 136/78 141/77 O2 Sat by Pulse 94 96 Oximetry O2 Sat by Pulse Oximetry [ Anterior Bilateral Throughout] 03/03/21 03/03/21 03/03/21 17:41 17:43 17:44 Temperature Pulse Rate 74 75 71 Respiratory Rate Blood Pressure 143/81 O2 Sat by Pulse 95 94 Oximetry O2 Sat by Pulse Oximetry [ Anterior Bilateral Throughout] 03/03/21 03/03/21 03/03/21 17:46 17:50 17:51 Temperature Pulse Rate 78 70 79 Respiratory Rate Blood Pressure 144/88 O2 Sat by Pulse 98 95 Oximetry O2 Sat by Pulse Oximetry [ Anterior Bilateral Throughout] 03/03/21 03/03/21 03/03/21 17:54 17:56 18:00 Temperature Pulse Rate 71 71 75 Respiratory Rate Blood Pressure 138/86 146/70 O2 Sat by Pulse 94 Oximetry O2 Sat by Pulse Oximetry [ Anterior Bilateral Throughout] 03/03/21 03/03/21 03/03/21 18:01 18:05 18:06 Temperature Pulse Rate 81 75 76 Respiratory Rate Blood Pressure 141/82 O2 Sat by Pulse 99 96 Oximetry O2 Sat by Pulse Oximetry [ Anterior Bilateral Throughout] 03/03/21 03/03/21 03/03/21 18:10 18:11 18:15 Temperature Pulse Rate 81 75 76 Respiratory Rate Blood Pressure 149/85 142/82 O2 Sat by Pulse 98 Oximetry O2 Sat by Pulse Oximetry [ Anterior Bilateral Throughout] 03/03/21 03/03/21 03/03/21 18:16 18:20 18:21 Temperature Pulse Rate 73 74 74 Respiratory Rate Blood Pressure 155/90 O2 Sat by Pulse 100 100 Oximetry O2 Sat by Pulse Oximetry [ Anterior Bilateral Throughout] 03/03/21 18:26 Temperature Pulse Rate 78 Respiratory Rate Blood Pressure O2 Sat by Pulse 97 Oximetry O2 Sat by Pulse Oximetry [ Anterior Bilateral Throughout] - Exam Breasts: deferred Cardiovascular: Regular rate Lungs: Normal air movement Abdomen: Present: normal appearance Vulva: both: normal FHR: category 1 Uterine Contraction Monitor Mode: External Cervical Dilatation: 4.5 Cervical Effacement Percentage: 70 station: -2 Uterine Contraction Pattern: Regular Uterine Tone Measurement Phase: Resting Uterine Contraction Intensity: Moderate - Labs Labs: Abnormal Labs 03/01/21 03/01/21 03/02/21 11:33 11:33 00:44 Plt Count 133 L Creatinine 0.5 L Magnesium 4.30 H 03/02/21 03/02/21 03/03/21 06:29 12:51 00:13 Plt Count Creatinine Magnesium 5.10 H 6.20 H 5.70 H 03/03/21 03/03/21 07:42 13:45 Plt Count Creatinine Magnesium 6.10 H 6.10 H Laboratory Results - last 24 hr 03/03/21 03/03/21 03/03/21 00:13 07:42 13:45 Magnesium 5.70 H 6.10 H 6.10 H
[2021-03-03] MEDS ORDERED: MINERAL OIL 30 ML ORAL LIQD ONE (23:51)
[2021-03-03] MEDS ORDERED: miSOPROStol 200 MCG TAB ONE (23:52)
[2021-03-04] MEDS: OXYTOCIN DRIP 30 UNITS/500 ML BAG IV SCH ×2 (00:52→02:42)
--- NOTE | 2021-03-04 01:43 | Procedure Note ---
OB Delivery Note - Delivery Date of Delivery: 03/04/21 Algebraist: ELDER REEVES Estimated blood loss: 500cc - Vaginal Delivery presentation: vertex Delivery position: OP Intrapartum events: gestational hypertension Delivery induction: oxytocin Delivery augmentation: pitocin Delivery placenta: spontaneous Delivery cord: 3 umbilical vessels Episiotomy: none Delivery laceration: 2nd degree Delivery repair: vicryl Anesthesia: epidural Delivery comments: of male infant in the direct OP position. Infant to mother's abdomen for skin to skin. Cord cut and clamped after cessation of pulse. handed to [facility] team for evaluation. Spontaneous delivery of placenta, intact, complete, 3 vessels noted. Placenta sent to pathology d/t [place]. Perineum and vagina inspected. 2nd degree laceration noted and repaired with 3-0 Vircryl. Escobar re- inserted. Pt to remain on magnesium infusion for 24 hours after delivery. Infant weight 7-4. Apgars 8,9. EBL 500ml. Sponges and instruments counted with RN X2 and correct X2. Infant and mother left in stable condition in care of RN. - Infant A at 1 minute: 8 at 5 minutes: 9 Gender: Male (Cheng, 7-4)
[2021-03-04] MEDS ORDERED: CALCIUM GLUCONATE 1000 MG/10 ML INJ IV ONE (01:55)
[2021-03-04] MEDS ORDERED: ONDANSETRON 4 MG/2 ML INJ IV PRN (01:57)
[2021-03-04] MEDS ORDERED: LOPERAMIDE 2 MG CAP PO PRN (01:57)
[2021-03-04] MEDS ORDERED: MAGNESIUM HYDROXIDE (MOM) ORAL LIQD UDC PO PRN (01:57)
[2021-03-04] MEDS ORDERED: CARBOPROST TROMETHAMINE 250 MCG/1 ML INJ IM PRN (01:57)
[2021-03-04] MEDS ORDERED: PROMETHAZINE 25 MG RECT SUPP PR PRN (01:57)
[2021-03-04] MEDS ORDERED: miSOPROStol 100 MCG TAB PR PRN (01:57)
[2021-03-04] MEDS ORDERED: diphenhydrAMINE 25 MG CAP PO PRN (01:57)
[2021-03-04] MEDS ORDERED: oxyCODONE /ACETAMINOPHEN 5-325MG TAB PO PRN (01:57)
[2021-03-04] MEDS ORDERED: LANOLIN/ZINC/DIMETHICONE (LANSINOH) 7 GM TP PRN ×2 (01:57)
[2021-03-04] MEDS ORDERED: WITCH HAZEL/ GLYCERIN PAD TP PRN (01:57)
[2021-03-04] MEDS ORDERED: BENZOCAINE/MENTHOL 20/0.5% TOP SPRAY 56 GM TP PRN (01:57)
[2021-03-04] MEDS ORDERED: PROMETHAZINE 25 MG TAB PO PRN (01:57)
[2021-03-04] MEDS ORDERED: LACTATED RINGERS 1,000 ML IV SCH (02:00)
[2021-03-04] MEDS ORDERED: ACETAMINOPHEN 500 MG TAB PO PRN (02:19)
[2021-03-04] MEDS: MAGNESIUM SULFATE 40GM/1000ML 40 GM/1,000 ML BAG IV SCH (02:43)
[2021-03-04] MEDS: IBUPROFEN 800 MG TAB PO SCH ×4 (04:38→23:40)
[2021-03-04] MEDS: PRENATAL VIT27-FE FUMARATE-FOLIC ACID VIT TAB PO SCH (10:02)
--- NOTE | 2021-03-04 10:29 | Event Note ---
Date: 03/04/21 Pt is ppd#0 doing well. Breast feeding and has no c/o at this time. Will con't the magnesium and labetalol at this time in addition to routine pp care.
[2021-03-04 14:01] LABS: Hemoglobin 10.4 gm/dl (10.1-14.3)
--- NOTE | 2021-03-04 21:18 | Post Anesthesia Evaluation ---
- Post Anesthesia Evaluation Patient Participated: Yes Airway Patent: Yes Stable Respiratory Function: Yes Nausea/Vomiting: No Temp > 96.8F: Yes Pain Manageable: Yes Adequeate Hydration: Yes Anesthesia Complications: No Block Receding Appropriately: Yes Patient on Ventilator: No
[2021-03-04] MEDS: DOCUSATE SODIUM 100 MG CAP PO SCH (23:40)
[2021-03-05] MEDS ORDERED: TETANUS,DIPH,PERTUSS(ACELL) VACCINE 0.5 ML SYRINGE IM ONE (06:00)
[2021-03-05] MEDS: IBUPROFEN 800 MG TAB PO SCH ×2 (06:11→11:33)
--- NOTE | 2021-03-05 07:30 | Progress Note ---
Assessment and Plan - Patient Problems (1) Pre-eclampsia in third trimester Onset Date: ~03/02/21 Current Visit: Yes Status: Acute Plan to address problem: -blood pressures well controlled on med -d/c home this am (2) Spontaneous vaginal delivery Current Visit: Yes Status: Acute Plan to address problem: -routine pp care -d/c home today. Subjective - Subjective Date of service: 03/05/21 Principal diagnosis: PPD #1 s/p Interval history: Pt doing well. blood pressures are well controlled on the labetalol 100mg po bid. She will be d/c home today. She expressed no questions or concerns today. Patient reports: appetite normal, voiding normally, pain well controlled, flatus, ambulating normally, no dizzy ambulation [place]: doing well Objective - Vital Signs Latest vital signs: Vital Signs Temp Pulse Resp BP BP Pulse Ox Pulse Ox 03/05/21 07:11 18 03/05/21 06:11 18 03/05/21 06:01 97.9 F 66 20 125/72 98 03/05/21 00:40 18 03/05/21 00:15 98.1 F 75 18 128/74 100 100 03/05/21 00:00 100 03/04/21 23:30 97.8 F 03/04/21 23:29 80 97 03/04/21 23:24 72 98 03/04/21 23:19 76 96 03/04/21 23:14 75 96 03/04/21 23:09 72 136/67 97 03/04/21 23:04 76 96 03/04/21 22:59 78 97 03/04/21 22:54 77 96 03/04/21 22:49 77 96 03/04/21 22:44 77 97 03/04/21 22:39 79 133/79 97 03/04/21 22:34 81 98 03/04/21 22:29 79 97 03/04/21 22:24 80 97 03/04/21 22:19 78 97 03/04/21 22:14 79 97 03/04/21 22:09 83 133/75 98 03/04/21 22:04 79 133/74 97 03/04/21 22:03 82 133/74 03/04/21 21:59 80 97 03/04/21 21:54 77 97 03/04/21 21:49 82 96 07/31/21 21:44 82 97 03/04/21 21:39 81 135/76 97 03/04/21 21:34 81 97 03/04/21 21:29 83 97 03/04/21 21:24 80 97 03/04/21 21:19 80 98 03/04/21 21:14 80 97 03/04/21 21:09 75 137/80 98 03/04/21 21:04 76 97 03/04/21 20:59 80 98 03/04/21 20:54 80 96 03/04/21 20:49 81 98 03/04/21 20:44 82 98 03/04/21 20:39 77 132/78 98 03/04/21 20:34 75 96 03/04/21 20:29 80 97 03/04/21 20:24 78 98 03/04/21 20:19 79 96 03/04/21 20:14 81 96 03/04/21 20:09 81 137/82 97 03/04/21 20:04 82 97 03/04/21 19:59 82 97 03/04/21 19:54 83 97 03/04/21 19:49 83 98 100 03/04/21 19:44 81 97 03/04/21 19:39 83 134/69 98 03/04/21 19:34 84 97 03/04/21 19:29 79 96 03/04/21 19:24 82 95 03/04/21 19:19 81 96 03/04/21 19:14 86 97 03/04/21 19:09 86 140/82 96 03/04/21 19:04 92 H 97 03/04/21 18:59 92 H 97 03/04/21 18:54 82 97 03/04/21 18:49 80 98 03/04/21 18:44 90 97 03/04/21 18:39 89 145/75 99 03/04/21 18:34 85 98 03/04/21 18:29 83 97 03/04/21 18:24 89 97 03/04/21 18:19 87 98 03/04/21 18:14 84 98 03/04/21 18:09 87 129/88 99 03/04/21 18:04 87 99 03/04/21 17:59 83 98 03/04/21 17:54 81 96 03/04/21 17:52 98.4 F 03/04/21 17:49 83 98 03/04/21 17:44 84 97 03/04/21 17:39 89 147/78 97 03/04/21 17:34 85 98 03/04/21 17:29 83 98 03/04/21 17:24 84 97 03/04/21 17:19 85 97 03/04/21 17:14 83 97 03/04/21 17:09 84 126/67 98 03/04/21 17:04 89 97 03/04/21 16:59 80 97 03/04/21 16:54 79 96 03/04/21 16:49 83 97 03/04/21 16:44 89 97 03/04/21 16:39 90 139/74 97 03/04/21 16:34 88 97 03/04/21 16:29 88 98 03/04/21 16:24 87 97 03/04/21 16:19 89 97 03/04/21 16:14 85 97 03/04/21 16:09 88 144/85 96 03/04/21 16:04 89 96 03/04/21 15:59 89 97 03/04/21 15:54 86 97 03/04/21 15:49 81 98 03/04/21 15:44 88 97 03/04/21 15:39 77 128/77 97 03/04/21 15:34 79 98 03/04/21 15:29 90 97 03/04/21 15:24 87 97 03/04/21 15:19 86 97 03/04/21 15:14 88 96 03/04/21 15:09 80 126/79 98 03/04/21 15:04 80 97 03/04/21 14:59 80 98 03/04/21 14:54 77 98 03/04/21 14:49 76 98 03/04/21 14:44 77 98 03/04/21 14:39 78 123/69 98 03/04/21 14:38 98.4 F 03/04/21 14:34 74 98 03/04/21 14:29 80 98 03/04/21 14:24 81 97 03/04/21 14:19 79 97 03/04/21 14:14 77 97 03/04/21 14:09 79 130/73 97 03/04/21 14:04 79 97 03/04/21 13:59 81 97 03/04/21 13:54 83 97 03/04/21 13:49 81 97 03/04/21 13:44 79 97 03/04/21 13:39 86 127/71 97 03/04/21 13:34 81 98 03/04/21 13:29 81 97 03/04/21 13:24 81 97 03/04/21 13:19 77 97 03/04/21 13:14 76 98 03/04/21 13:09 77 135/71 98 03/04/21 13:04 81 97 03/04/21 12:59 86 98 03/04/21 12:54 84 97 03/04/21 12:49 89 97 03/04/21 12:44 87 96 03/04/21 12:39 82 137/68 98 03/04/21 12:34 87 98 03/04/21 12:29 84 97 03/04/21 12:24 86 97 03/04/21 12:19 91 H 96 03/04/21 12:14 85 96 03/04/21 12:09 84 143/66 97 03/04/21 12:04 81 96 03/04/21 11:59 85 96 03/04/21 11:54 86 96 03/04/21 11:49 79 96 03/04/21 11:44 81 97 03/04/21 11:39 89 96 03/04/21 11:34 82 97 03/04/21 11:29 83 95 03/04/21 11:24 82 96 03/04/21 11:19 86 97 03/04/21 11:14 86 95 03/04/21 11:09 86 144/75 97 03/04/21 11:04 85 97 03/04/21 11:01 79 139/69 03/04/21 10:59 83 96 03/04/21 10:54 82 96 03/04/21 10:49 84 98 03/04/21 10:44 84 98 03/04/21 10:39 85 161/89 98 03/04/21 10:34 82 97 03/04/21 10:29 82 97 03/04/21 10:24 79 97 03/04/21 10:19 82 98 03/04/21 10:14 79 97 03/04/21 10:09 81 138/81 98 03/04/21 10:04 82 98 03/04/21 10:02 80 130/67 03/04/21 09:59 79 98 03/04/21 09:54 79 97 03/04/21 09:49 81 96 03/04/21 09:46 77 130/67 03/04/21 09:44 81 99 03/04/21 09:39 81 97 03/04/21 09:34 79 98 03/04/21 09:29 81 97 03/04/21 09:24 78 98 03/04/21 09:19 87 97 03/04/21 09:14 81 97 03/04/21 09:09 94 H 145/85 97 03/04/21 09:04 86 98 03/04/21 08:59 83 98 03/04/21 08:54 85 98 03/04/21 08:49 82 98 03/04/21 08:44 84 98 03/04/21 08:39 78 140/78 98 03/04/21 08:34 79 97 03/04/21 08:30 95 03/04/21 08:29 77 97 03/04/21 08:24 78 97 03/04/21 08:23 98.2 F 03/04/21 08:19 83 97 03/04/21 08:14 79 97 03/04/21 08:09 78 138/77 98 03/04/21 08:04 80 97 03/04/21 07:59 82 98 03/04/21 07:54 80 98 03/04/21 07:49 81 98 03/04/21 07:44 83 97 03/04/21 07:39 80 131/73 97 03/04/21 07:34 80 96 Intake and Output 03/04/21 03/05/21 03/05/21 22:59 06:59 14:59 Intake Total 400 360 Output Total 1650 800 Balance -1250 -440 Intake: Oral 400 120 Intake, Free Water 240 Output: Urine 1650 800 Indwelling Catheter 800 Uretheral (Escobar) 850 400 Void 400 Other: Total, Intake Amount 400 120 Total, Output Amount 800 400 # Voids Void 1 - Exam Cardiovascular: Present: Normal S1, Normal S2 Lungs: Present: Clear to auscultation, Normal air movement Abdomen: Present: normal appearance, soft. Absent: distention, tenderness, guarding Uterus: Present: normal, firm, fundal height below umbilicus. Absent: bogginess, tenderness Extremities: Present: normal. Absent: tenderness, edema Deep Tendon Reflex Grade: Normal +2 - Labs Labs: Abnormal lab results 03/04/21 03/04/21 Range/Units 13:39 19:40 Magnesium 6.50 H 5.80 H (1.7-2.3) mg/dL
--- NOTE | 2021-03-05 07:31 | Discharge Summary ---
Providers - Providers Date of Admission: 03/01/21 14:50 Date of discharge: 03/05/21 Attending physician: ORLANDO SEGOVIA Primary care physician: ORLANDO SEGOVIA Hospitalization Reason for admission: other (severe gestational hypertension) Delivery: Procedure details: see delivery note Episiotomy: none Laceration: none Other procedures: none complications: none Discharge diagnosis: IUP at term delivered baby: female Hospital course: Pt admitted for gestational hypertension. She was induced due to severe features. She had normal vaginal delivery that was not complicated. Pt s/p MgSO4 x 24hrs after delivery. PP course has not been complicated. She will be d/c home today. Condition at discharge: Good Disposition: DC-01 TO HOME OR SELFCARE Plan - Discharge Medications Prescriptions: labetaloL [Labetalol 100mg TAB] 100 mg PO BID #60 tablet - Provider Discharge Summary Activity: routine, no sex for 6 weeks, no heavy lifting 4 weeks, no strenuous exercise Diet: routine Instructions: routine Additional instructions: [] Smoking cessation referral if applicable(refer to patient education folder for contact #) [] Refer to [facility] Booklet Call your doctor immediately for: * Fever > 100.5 * Heavy vaginal bleeding ( >1 pad per hour) * Severe persistent headache * Shortness of breath * Reddened, hot, painful area to leg or breast * Drainage or odor from incision. * Keep incision clean and dry at all times and follow doctor's instructions regarding bathing/showering - Follow up plan Follow up: ORLANDO SEGOVIA MD [Primary Care Provider] - 7 Days
[2021-03-05] MEDS: DOCUSATE SODIUM 100 MG CAP PO SCH (09:15)
[2021-03-05] MEDS: PRENATAL VIT27-FE FUMARATE-FOLIC ACID VIT TAB PO SCH (09:15)
[2021-03-05 13:40] VITALS: BP 127/75
== END 2021-03-05 14:15 | disposition home or self-care (01) | DRG 775 ==
LOC: TRG 10:12 → APU 10:14 → TRG 11:27 → LD 14:50 → OB 03-05 00:35
PROVIDERS: ADMIT Obstetrics & Gynecology; ATTEND Obstetrics & Gynecology
PROC: 10E0XZZ Delivery of Products of Conception, External Approach (ICD-10-PCS; principal; 2021-03-04)
PROC: 0KQM0ZZ Repair Perineum Muscle, Open Approach (ICD-10-PCS; 2021-03-04)
PROC: 3E0DXGC Introduction of Other Therapeutic Substance into Mouth and Pharynx, External Approach (ICD-10-PCS; 2021-03-04)
PROC: 00HU33Z Insertion of Infusion Device into Spinal Canal, Percutaneous Approach (ICD-10-PCS; 2021-03-04)
PROC: 3E0R3BZ Introduction of Anesthetic Agent into Spinal Canal, Percutaneous Approach (ICD-10-PCS; 2021-03-04)
DX: O14.94 Unspecified pre-eclampsia, complicating childbirth (principal); Z37.0 Single live birth; Z3A.36 36 weeks gestation of pregnancy; O13.4 Gestational [pregnancy-induced] hypertension without significant proteinuria, complicating childbirth; O70.1 Second degree perineal laceration during delivery; Z20.822 Contact with and (suspected) exposure to COVID-19; O99.214 Obesity complicating childbirth
CPT/HCPCS: 36415; 59200; 76816; 76819; 81001; 82565; 83615; 83735; 84450; 84460; 84550; 85014; 85018; 85027; 86850; 86900; 86901; 88307; G0378; J2590; J3475; J7120; U0003